=== PATIENT | male | born 1935 | race Caucasian/White ===

== ENCOUNTER → 2016-08-20 | Outpatient (CLI) | payer MEDICARE, BC ==
[~2016-08-20] MED LIST: ACET-2321 PO; AMLO10TA2 PO; APIX5TAB PO; DOCU100C PO; FAMO20TA8 PO; FURO-153 PO; GABA-336 PO; GABA-338 PO; HYDR12.54 PO; INDO50CA71 PO; LISI40TA4 PO; MELA10TA2 PO; MINO100C43 PO; POTA-81 PO; SIMV40TA5 PO; TRIA15CR3 TOP
--- NOTE | 2016-08-20 16:27 | DI ---
INDICATION: ITS.REASON: R05 COUGH PROCEDURE: CHEST 2-VIEWS UPRIGHT (PA \T\ LAT) Encounter: Initial COMPARISON: January 30, 2016 FINDINGS: Is a small area of strandy opacity in the left base which appears to be chronic probably representing scarring. The lungs are otherwise clear. There is no pleural effusion or pneumothorax. The heart size, mediastinal contours and pulmonary vascularity are unchanged with a left cardiac pacemaker. IMPRESSION: Stable chest without acute cardiopulmonary disease. .
== END ==
LOC: IMA 15:46
PROVIDERS: ATTEND Family Medicine
DX: R05 Cough (principal); Z95.0 Presence of cardiac pacemaker
CPT/HCPCS: 87486; 87581; 87633; 87798

== ENCOUNTER 2016-12-17 19:43 | Inpatient (IN) ==
--- NOTE | 2016-12-17 20:29 | Emergency Department Report ---
General Adult HPI - General Chief complaint: Weakness Stated complaint: Fever,weakness Time Seen by Provider: 12/17/16 20:04 Source: patient, family Mode of arrival: ambulatory Limitations: no limitations - History of Present Illness HPI narrative: 81-year-old male presents to the emergency department with a chief complaint of a fever. Patient denies any pain or discomfort. Patient was noted to have started experiencing a fever on Thursday. Temperature has been up to 102F at home. Patient does note that he pulled a tick from his posterior left neck a few days before his symptoms began. Patient has been noting improvement of symptoms with Tylenol. Patient was seen and evaluated with a negative evaluation including CTA of the chest and CT of the abdomen and pelvis at [facility] yesterday. Patient was at home when the symptoms began. Symptoms have been persisted in nature since onset. He has no other complaints or associated symptoms. - Related Data Home Medications Medication Instructions Recorded Confirmed Docusate Sodium [Stool Softener] 100 mg PO BID #0 cap 03/27/15 12/17/16 Famotidine 1 tab PO PRN #0 tab 03/27/15 12/17/16 Gabapentin 100 mg PO DAILY #0 cap 03/27/15 12/17/16 Simvastatin 40 mg PO HS #0 tab 03/27/15 12/17/16 Amlodipine Besylate 10 mg PO DAILY #0 tab 06/26/15 12/17/16 Triamcinolone 0.25% Cream 15G 1 applic TOP PRN #30 gm 06/26/15 12/17/16 [Kenalog] Allopurinol [Zyloprim] 100 mg PO DAILY 12/17/16 12/17/16 Donepezil [Aricept] 5 mg PO DAILY 12/17/16 12/17/16 Gabapentin [Neurontin] 200 mg PO HS 12/17/16 12/17/16 Multivitamin [One Daily 1 each PO DAILY 12/17/16 12/17/16 Multivitamin] Trazodone [Desyrel] 50 mg PO HS 12/17/16 12/17/16 Previous Rx's Medication Instructions Recorded Apixaban [Eliquis] 2.5 mg PO BID 30 Days 03/30/15 Allergies Allergy/AdvReac Type Severity Reaction Status Date / Time hydrochlorothiazide AdvReac Intermediate kidney Verified 12/17/16 20:09 damage lisinopril AdvReac Mild Cough Verified 12/17/16 20:07 furosemide [From Lasix] AdvReac kidney Verified 12/17/16 20:09 damage indomethacin AdvReac kidney Verified 12/17/16 20:09 damage metoprolol AdvReac Atrial Verified 12/17/16 20:08 Fibrillation rivaroxaban [From Xarelto] AdvReac Atrial Verified 12/17/16 20:08 Fibrillation Review of Systems Constitutional: Reports: fever. Denies: chills Eyes: Denies: eye pain, vision change ENT: Denies: ear pain, throat pain Cardiovascular: Denies: chest pain, palpitations Respiratory: Denies: cough, dyspnea Gastrointestinal: Denies: abdominal pain, nausea, vomiting, diarrhea Genitourinary: Denies: urgency, dysuria Musculoskeletal: Denies: back pain, arthralgia Integumentary: Denies: erythema, rash Neurological: Denies: headache, weakness, numbness, paresthesias Psychiatric: Denies: anxiety, depression Endocrine: Denies: fatigue, heat or cold intolerance Hematological/Lymphatic: Denies: easy bleeding, easy bruising Allergic/Immunologic: Denies: facial swelling, urticaria PFSH Patient Stated Medical History Cerebrovascular Accident Yes: only vision problems Dementia Yes Dysphagia Yes: speech therapy-improved Cardiac Arrhythmia Yes: afib Hx Renal Disease Yes Osteoarthritis Yes Surgical History: Pacemaker, Orthopedic surgery Family History: Reviewed and noncontributory. - Social History Smoking status: Never smoker Substance use type: does not use Alcohol intake frequency: does not drink Physical Exam - Limitations Limitations: no limitations - General General appearance: alert, in no apparent distress - Normal Exams: Head:: Normocephalic without trauma Eyes:: Pupils are PERRLA w/ EOMI, No scleral icterus, irritation, or foreign bodies noted ENMT:: No facial trauma, nasal exudates, pharyngeal erythema, or exudates are noted Dental: No fractured, loose, or missing teeth noted Neck:: Full range of motion, without adenopathy, JVD, bruits or thyromegaly Chest/Respirations:: Clear all renee, with good airflow, and symmetry bilaterally Cardiovascular:: Regular rate and rhythm, without murmur or gallop, Pulses 2+ all extremities, capillary refill, <2 seconds all extremities Abdomen:: Bowel sounds positive, soft, non-tender, non-distended, no hepatosplenomegaly, masses or bruits noted Lymphatic:: No lymphadenopathy, or lymphedema noted Integumentary:: No rashes, hives, or bruising noted, hair and nails, without abnormality (small scabbed area at the posterior left neck where tick was removed by patient. No sign of abscess. No lymphangitis.) Neurological:: Patient is alert, and oriented, cranial nerves, motor/sensory/ cerebellar, exams w/o gross deficits, to observation Psychiatric:: Patient exhibits, appropriate attention, emotion and affect Course Vital Signs Temperature 98.7 F 12/17/16 23:15 Pulse Rate 81 12/17/16 23:15 Respiratory Rate 19 12/17/16 23:15 Blood Pressure 137/58 12/17/16 23:15 Pulse Oximetry 94 12/17/16 23:15 Temperature 98.7 F 12/17/16 23:15 Pulse Rate 81 12/17/16 23:15 Respiratory Rate 19 12/17/16 23:15 Blood Pressure 137/58 12/17/16 23:15 Pulse Oximetry 94 12/17/16 23:15 Medical Decision Making - [facility] Narrative Medical decision making narrative: Labs/imaging were discussed in detail with the patient and family and questions are answered. Patient is given IV hydration. Patient is started on doxycycline 100 mg IV times one at 2208 when sepsis was considered. Patient was neither hypotensive nor did he have a lactic acid greater than 4 in the emergency Department. Patient is admitted to the service of the hospitalist for further evaluation and treatment. Patient and family are in agreement with the current plan of management. No further orders from accepting physician who is in agreement with the current plan of management. Patient is admitted to the service of Dr. Kelley after discussion with Dr. Sims. Patient is admitted to the hospital in improved condition. Patient will be treated for Lyme disease at this time. Records from [facility] visit were obtained and reviewed. - Differential Diagnosis Lyme disease, febrile illness, viral syndrome, UTI - Lab Data Lab Results 12/17/16 12/17/16 12/17/16 Range/Units 20:26 20:26 20:45 Troponin I 0.050 (0-0.12) ng/ml Plasma Lactate 1.2 (0.6-2.2) MMOL/L Procalcitonin 0.54 NG/ML Specimen Hemolysis < 15 (0-25) Ur Collection Type Urine, catheter Urine Color Yellow (YELLOW) Urine Clarity Clear Urine pH 5.0 (5.0-8.0) Ur Specific Moran 1.025 (1.015-1.025) Urine Protein 2+ A (NEGATIVE) Urine Glucose (UA) Negative (NEGATIVE) Urine Ketones Trace A (NEGATIVE) Urine Occult Blood 3+ A (NEGATIVE) Urine Nitrate Negative (NEGATIVE) Urine Bilirubin 1+ A (NEGATIVE) Urine Urobilinogen 4.0 A (NORMAL) EU/DL Ur Leukocyte Esterase Negative (NEGATIVE) Urine RBC 1-3 (0-3) /HPF Urine WBC 0-1 (0-5) /HPF Amorphous Sediment Moderate Urine Bacteria 1+ H (NEGATIVE) Hyaline Casts 0-1 /LPF Urine Mucus Present Ur Culture Indicated? Cult not indicated - Radiology Data Chest x-ray: Negative - EKG Data EKG #1 EKG results narrative: Atrial fibrillation. 82 bpm. No STEMI. Disposition Clinical Impression: Febrile illness, acute Disposition: 02 To [facility] Condition: Improved Time of Disposition: 22:00 - Seen By: physician
[2016-12-17] MEDS ORDERED: NS 1,000 ML IV ONE (22:04)
[2016-12-17] MEDS ORDERED: DOXYCYCLINE 100 MG in NS 250ml 250 ML IV ONE (22:08)
[2016-12-17] MEDS ORDERED: FAMOTIDINE 20 MG TABLET PO PRN (23:16)
[2016-12-17] MEDS ORDERED: ONDANSETRON 4 MG/2 ML INJECTION IVP PRN (23:16)
[2016-12-17] MEDS ORDERED: TRIAMCINOLONE 0.025% CREAM 15 G TUBE TOP SCH (23:16)
[2016-12-17 23:18] VITALS: BMI 32.0
[2016-12-17] MEDS ORDERED: FALL RISK - PHARMACY CONSULT MC PRN (23:32)
--- NOTE | 2016-12-17 23:47 | History & Physical Report ---
<Edwardo Sims Lee Ann - Last Filed: 12/17/16 23:43> History of Present Illness Date: 12/17/16 Chief complaint: Fevers HPI: Pleasant 81 year old male presents with fevers since Thursday. He apparently had a tick bite prior to this, behind his left ear. The tick was removed. He did not feel well yesterday, and went to the [facility] ED for treatment. He was reportedly told he should be admitted to the hospital, but it sounds like he left AMA from that ED. He went to his PCP today, and had blood drawn. He was told to come to the ER tonight by his PCP when lab returned some concerning findings. His TMAX today was reportedly 103.6 at home. In light of recent tick bite, doxycycline has been started and he will be placed into the hospital tonight for further treatment. Please note: This patient encounter was performed via telemedicine technology. Review of Systems All systems: reviewed and no additional remarkable complaints except as stated PFSH Patient Stated Medical History Cerebrovascular Accident Yes: , only vision problems Dementia Yes Cataracts Yes Dysphagia Yes: speech therapy-improved Cardiac Arrhythmia Yes: afib Hypertension Yes: Essential Other Cardiology Yes: Tricuspid valve regurgitation Gastroesophageal Reflux Yes Disease Hx Renal Disease Yes: CKD Osteoarthritis Yes - Social History Smoking status: Former smoker Medications Home Medications Medication Instructions Recorded Confirmed Type Docusate Sodium [Stool Softener] 100 mg PO BID #0 cap 03/27/15 12/17/16 History Famotidine 1 tab PO PRN #0 tab 03/27/15 12/17/16 History Gabapentin 100 mg PO DAILY #0 cap 03/27/15 12/17/16 History Simvastatin 40 mg PO HS #0 tab 03/27/15 12/17/16 History Amlodipine Besylate 10 mg PO DAILY #0 tab 06/26/15 12/17/16 History Triamcinolone 0.25% Cream 15G 1 applic TOP PRN #30 gm 06/26/15 12/17/16 History [Kenalog] Allopurinol [Zyloprim] 100 mg PO DAILY 12/17/16 12/17/16 History Donepezil [Aricept] 5 mg PO DAILY 12/17/16 12/17/16 History Gabapentin [Neurontin] 200 mg PO HS 12/17/16 12/17/16 History Multivitamin [One Daily 1 each PO DAILY 12/17/16 12/17/16 History Multivitamin] Trazodone [Desyrel] 50 mg PO HS 12/17/16 12/17/16 History Allergies Allergy/AdvReac Type Severity Reaction Status Date / Time hydrochlorothiazide AdvReac Intermediate kidney Verified 12/17/16 20:09 damage lisinopril AdvReac Mild Cough Verified 12/17/16 20:07 furosemide [From Lasix] AdvReac kidney Verified 12/17/16 20:09 damage indomethacin AdvReac kidney Verified 12/17/16 20:09 damage metoprolol AdvReac Atrial Verified 12/17/16 20:08 Fibrillation rivaroxaban [From Xarelto] AdvReac Atrial Verified 12/17/16 20:08 Fibrillation Exam Vital Signs: Temperature 98.7 F 12/17/16 23:15 Pulse Rate 81 12/17/16 23:15 Respiratory Rate 19 12/17/16 23:15 Blood Pressure 137/58 12/17/16 23:15 Pulse Oximetry 94 12/17/16 23:15 Oxygen Delivery Method Room Air Height: 1.78 m Weight: 101.2 kg Body Mass Index: 32.0 - Constitutional Present: no acute distress - Routine HEENT Exam Head: Present: normocephalic, atraumatic Eye: Present: EOMI - Routine Neck Exam Present: supple. Absent: JVD - Routine Respiratory Exam Present: CTA bilaterally - Routine Cardiovascular Exam Present: RRR, S1, S2 - Routine Abdominal Exam Present: soft - Routine Extremities Exam Absent: edema - Routine Skin Exam Absent: rash - Routine Neurological Exam No deficits Assessment and Plan DVT Prophylaxis: SCD's Resuscitation Status: Full Code Assessment and Plan: 1. Fever with concern for early sepsis, possibly in relation to recent tick bite 2. Cerebrovascular disease 3. Dementia 4. A fib 5. HTN 6. GERD 7. OA Plan Patient will be admitted to the hospital. Continue IVF. Another dose of IV doxycycline will be ordered for the AM. Tick borne panel sent, including lyme, RMSF, erhlichia. Supportive care. He does not appear toxic at this time. Repeat labs in AM. I have reviewed his home meds, will continue those which would be appropriate at this time. DVT ppx will be with home DOAC. Hospital Course Summary Disclaimer: The visit summary below is not to be considered part of the above Progress Note. <Gabriela Encarnacion - Last Filed: 12/18/16 10:31> History of Present Illness Date: 12/18/16 [facility] Patient Stated Medical History Cerebrovascular Accident Yes: , only vision problems Dementia Yes Cataracts Yes Dysphagia Yes: speech therapy-improved Cardiac Arrhythmia Yes: afib Hypertension Yes: Essential Other Cardiology Yes: Tricuspid valve regurgitation Gastroesophageal Reflux Yes Disease Hx Renal Disease Yes: CKD Osteoarthritis Yes Exam Vital Signs: Temperature 99.0 F 12/18/16 07:15 Pulse Rate 77 12/18/16 08:00 Respiratory Rate 19 12/17/16 23:15 Blood Pressure 113/56 12/18/16 07:15 Pulse Oximetry 91 12/18/16 07:15 Oxygen Delivery Method Room Air Height: 5 ft 10 in Weight: 225 lb 8.526 oz Results - Labs CBC & Chem 7: 12/18/16 04:30 12/18/16 04:30 Assessment and Plan Assessment and Plan: Patient was seen and examined by me at 9:50 am and dictated separately. Hospital Course Summary Disclaimer: The visit summary below is not to be considered part of the above Progress Note.
[2016-12-18] MEDS: SIMVASTATIN 40 MG TABLET PO SCH ×2 (00:05→21:07)
[2016-12-18] MEDS: GABAPENTIN 100 MG CAPSULE PO SCH ×3 (00:06→21:07)
[2016-12-18] MEDS: TRAZODONE 50 MG TABLET PO SCH ×2 (00:06→21:06)
[2016-12-18] MEDS: DOCUSATE SODIUM 100 MG CAPSULE PO SCH ×3 (00:09→21:07)
[2016-12-18] MEDS: APIXABAN 5 MG TABLET PO SCH ×3 (01:13→21:07)
[2016-12-18] MEDS: NS 1,000 ML IV SCH ×3 (01:15→14:52)
--- NOTE | 2016-12-18 08:00 | XRay Report ---
Indication: Fever PROCEDURE: XR chest 1V: Encounter: Initial Comparison: August 20, 2016 Findings: Lungs are mildly hypoinflated. There is pulmonary vascular congestion and probable small left effusion. Right lung is grossly clear. No pneumothorax. Heart size and mediastinal contours are stable. Left pacemaker. Impression: Mild to moderate congestive failure. .
[2016-12-18] MEDS: ALLOPURINOL 100 MG TABLET PO SCH (09:09)
[2016-12-18] MEDS: DONEPEZIL 5 MG TABLET PO SCH (09:09)
[2016-12-18] MEDS: AMLODIPINE 10 MG TABLET PO SCH (09:09)
[2016-12-18] MEDS ORDERED: DOXYCYCLINE 100 MG in NS 250ml 250 ML IV ONE (10:00)
[2016-12-18] MEDS: ACETAMINOPHEN 325 MG TABLET PO PRN ×4 (12:58→23:55)
[2016-12-18] MEDS: MULTI-VITAMIN PLAIN TABLET PO SCH (15:02)
--- NOTE | 2016-12-18 15:32 | History and Physical ---
INFORMANT: Patient, who is a fair, somewhat poor, historian, patient's granddaughter, who lives at home with him, and patient's current chart. Time of exam: 9:50 a.m. CHIEF COMPLAINT Fevers. PRIMARY CARE PHYSICIAN Dr. Holder HISTORY OF PRESENT ILLNESS The patient is a very pleasant 81-year-old white male who was brought to the emergency department in [place] on Thursday with a fever and he was feeling weak. At the time he presented there he reported that he had had chest pain the night before which was a tight feeling radiating from both elbows up on both sides with some left-sided jaw pain. This subsequently resolved. He also was running fevers. He did report that he had a bite behind his left ear that he believes was a tick, that he removed about a week to a week and a half ago. When he was seen in the [place] emergency department he was advised to be admitted but he did not want to be admitted so he left the ED and saw Dr. Hargrove in the clinic yesterday afternoon at which time he had a second EKG. The first EKG was apparently normal according to the granddaughter as was the second. Blood work was drawn and Dr. Hargrove called yesterday afternoon saying that the lab work was okay. However, the patient was continuing to run fevers. The granddaughter reports that on Thursday his temperature went down with Tylenol from 101.6 but then was back up to 103.8 last evening. The granddaughter brought him to the [facility] Department for further evaluation and he was subsequently admitted. The patient reports that he has had fevers as high as 103.8 with shaking chills and night sweats. He has had a little bit of headache in the center of his head. He has had no sores in his mouth and no sore throat. He does have upper dentures and lower partials. His vision is corrected with glasses. He is hard of hearing which makes the exam somewhat difficult. The granddaughter reports he has sounded somewhat short of breath but he denies. He has an occasional cough or clearing of the throat. He has had no nausea, no vomiting, no diarrhea, no constipation. He has felt weak all over. Yesterday he was unable to sit up in his bed unassisted. No particular pain. No numbness. No tingling of his arms or legs. No obvious skin rash. The granddaughter does report they live outside of town in [place] and her grandfather spends a lot of time with the dog outside by a shade tree. There have been lots of ticks primarily on the dog. She does not recall a tick on her grandfather. The patient was started on doxycycline and was admitted for further evaluation. PAST MEDICAL HISTORY Prostate cancer - 1999. Stroke - October 2013. Skin cancer melanoma removed from right side of face - 2013. History of atrial fibrillation for which he sees Dr. Wellington. Neuropathy. High cholesterol. Essential hypertension. Chronic kidney disease. Hyperlipidemia. Gout. Gastroesophageal reflux disease. Tricuspid valve regurgitation. PAST SURGICAL HISTORY Prostatectomy - 1999. Right knee replacement - 2006. Melanoma removed - 2013. Pacemaker placement - 06/26/2015. HOME MEDICATIONS Colace 100 mg p.o. b.i.d. Famotidine 20 mg p.o. p.r.n. Simvastatin 40 mg p.o. daily. Amlodipine 10 mg p.o. daily. Eliquis 2.5 mg twice daily. Allopurinol 100 mg p.o. daily. Donepezil 5 mg p.o. daily. Trazodone 50 mg p.o. daily for insomnia. Centrum Silver daily. Triamcinolone acetonide 0.1% p.r.n. dry skin. Gabapentin 100 mg in the morning, 200 mg in evening for neuropathy. ALLERGIES Namzaric. Lisinopril - caused a cough. Hydrochlorothiazide - stopped due to worsening kidney function. Lasix and potassium chloride also worsened his kidney function but he can take once daily for three days as needed. Xarelto and metoprolol caused atrial fibrillation. Indomethacin worsened his kidney function. PERSONAL HISTORY The patient lives at home with his granddaughter who is his primary squeezer operator. He is originally from a small town in [place]. 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 His hobbies include yard work including mowing. They have two dogs and one bird. He quit smoking 40 years ago. He continues to chew tobacco. He drinks alcohol occasionally. No IV or street drug use. FAMILY HISTORY Father in his 80s of [place]. Mother at age 89 presumably from old age. He has one sister who from cancer, one brother who for COPD. IMMUNIZATIONS It is unclear if he has had a Tdap or a shingles vaccine. His flu vaccine was in January 2016. Prevnar 13 in March 2015. Prevnar 23 in January 2016. REVIEW OF SYSTEMS As per HPI above. In addition, his vision is corrected with glasses. He has dentures, as noted above. He has had a colonoscopy in the past but nothing recent. Otherwise, negative review of systems except as mentioned in HPI. PHYSICAL EXAM VITAL SIGNS: Temperature on admission 98.7. This morning it is 99.0 oral. Pulse 93/irregular. Blood pressure 113/56. Oxygen saturation on room air 91%. WT 223 pounds. GENERAL: This is an alert white male who is cooperative with exam. HEENT: Head is atraumatic, normocephalic. PERRLA. There is no conjunctival petechiae. Oral mucosa is somewhat dry. He has upper plates and lower partials. No evidence of thrush. NECK: Supple without adenopathy. LUNGS: Coarse breath sounds with a few crackles in the right base. CARDIOVASCULAR: Irregularly irregular. No obvious murmur. It should be noted that he has an implanted pacemaker in the left upper chest. ABDOMEN: Distended. Bowel sounds are present. There is no guarding, no rebound. No hepatosplenomegaly. EXTREMITIES: No clubbing or cyanosis. He has trace edema. There is no obvious rash. He has a small bruise on the left foot that is about 3 cm in diameter and extending on the upper part of his left foot. He has a little ecchymosis on the left second toe on the pad of the toe. He also has some damage to the left thumbnail secondary to previous trauma. LABORATORY Blood cultures x 2 have been drawn and are pending. White cell count is 4700 with 73% neutrophils, 23% bands. Hemoglobin 12.8, hematocrit 39.0, platelet count 87,000. Sodium 136, potassium 3.8, chloride 108, BUN 26, creatinine 1.8, CO2 22, glucose 103, calcium 8.3, AST 101, ALT 70. Troponin 0.050. Total protein 5.9. Albumin 3.3. Plasma lactate 1.2. Procalcitonin 0.54. UA showed 2+ protein, 3+ blood, 1+ bilirubin, 1+ bacteria. Serologies for Lyme are pending, which will be unlikely. Tularemia antibody is pending as well as rickettsia, Ehrlichia muris, Ehrlichia ewingii, Ehrlichia chaffeensis, Anaplasma phagocytophilum and IgM. IMAGING Chest x-ray done on admission compared to 08/03/2016 showed lungs are mildly hypoinflated. There is pulmonary vascular congestion, probable small left effusion. Right lung is grossly clear. No pneumothorax. Heart size and mediastinal contours are stable. Left pacemaker in place. Impression: Mild-to- moderate congestive heart failure. IMPRESSION 1. Fevers and recent tick bites. Ehrlichia tickborne illness such as Rickettsia , tularemia, ehrlichiosis or anaplasma would be in the differential. With the new finding of the right lower lung crackles would rule out pneumonia. 2. Atrial fibrillation, currently stable on current medications. 3. Chronic kidney disease. 4. Essential hypertension. 5. Hyperlipidemia. 6. Gout. 7. Gastroesophageal reflux disease. RECOMMENDATIONS 1. At this time will continue doxycycline. Will switch to p.o. as it has good absorption. 2. Will repeat chest x-ray. 3. Will discontinue IV fluids. 4. Discussed code status with the patient and his granddaughter. At this time the patient is a FULL CODE. 5. At some point the patient needs to have his immunizations addressed as an outpatient in clinic including shingles vaccine and Tdap. MTDD
--- NOTE | 2016-12-18 18:21 | Progress Note ---
Progress Note: Called by nursing around 12:45. She reported pt was doing well this am, however when transferred to chair, family noted facial twitching, weakness and trembling. His O2 sats were in the low 90's on room air and he was lethargic. Other vital signs were WNL except his temperature was increasing (see flow sheet ). He was given tylenol, started on 1 liter O2 and placed back in bed with additional blankets. When I checked later, he was resting quietly but his fevers have returned. I suspect the earlier episode was shaking chills in response to his fever. He may require IV fluids and needs close monitoring for change in status. Discussed with family and nursing.
[2016-12-18] MEDS ORDERED: CEFTRIAXONE 1 G in NS 100 ML IV SCH (21:00)
[2016-12-18] MEDS: SALINE FLUSH 10ml SYRINGE IVF PRN ×2 (21:53→23:57)
[2016-12-19] MEDS: NS 1,000 ML IV SCH ×2 (02:54→11:00)
[2016-12-19] MEDS: SALINE FLUSH 10ml SYRINGE IVF PRN ×2 (02:55→20:32)
--- NOTE | 2016-12-19 08:46 | XRay Report ---
INDICATION: crackles right lower lobe PROCEDURE: CHEST 2-VIEWS UPRIGHT (PA & LAT) Encounter: Initial COMPARISON: December 17, 2016 FINDINGS: Pulmonary vascular congestion has improved. There are some fine groundglass opacities remaining in the lung bases, but no new consolidation. Upper lung renee are clear. No pneumothorax. Trace effusions. Heart size and mediastinal contours are stable. Left pacemaker. Impression: Improved congestive failure. No focal pneumonia. .
[2016-12-19] MEDS: ALLOPURINOL 100 MG TABLET PO SCH (09:51)
[2016-12-19] MEDS: MULTI-VITAMIN PLAIN TABLET PO SCH (09:51)
[2016-12-19] MEDS: DOCUSATE SODIUM 100 MG CAPSULE PO SCH ×2 (09:51→20:32)
[2016-12-19] MEDS: DONEPEZIL 5 MG TABLET PO SCH (09:51)
[2016-12-19] MEDS: APIXABAN 5 MG TABLET PO SCH ×2 (09:51→20:31)
[2016-12-19] MEDS: GABAPENTIN 100 MG CAPSULE PO SCH ×3 (09:52→22:12)
[2016-12-19] MEDS: ACETAMINOPHEN 325 MG TABLET PO PRN (11:12)
--- NOTE | 2016-12-19 12:29 | Progress Note ---
Subjective: The patient was seen at 10:55 with grandson at bedside. The patient reports he is doing well and slept well during the night. Denies fevers, chills, sweats. Denies sore throat, shortness of breath, dyspnea on exertion. His son reports he does have a chronic cough without sputum production ,. He did have chest pain prior to admission.The family is requesting that Dr. Wellington see him while he is here. He denies nausea, vomiting, diarrhea. He does report constipation. He is urinating without difficulty, denies dysuria. Objective Vital signs: Temperature 98.0 F 12/19/16 12:00 Pulse Rate 96 12/19/16 12:00 Respiratory Rate 18 12/19/16 12:00 Blood Pressure 99/55 12/19/16 12:00 Pulse Oximetry 92 12/19/16 12:00 Oxygen Delivery Method Room Air Oxygen Flow Rate 1 Selected Entries 12/18/16 13:03 12/18/16 13:15 12/18/16 14:22 Temperature 99.1 F 100.1 F 101.7 F H 12/18/16 16:00 12/18/16 18:10 12/18/16 20:00 Temperature 101.9 F H 102.2 F H 100.5 F H 12/18/16 22:00 12/19/16 00:00 12/19/16 02:15 Temperature 100 F 101.5 F H 101.4 F H 12/19/16 04:00 12/19/16 05:57 12/19/16 07:40 Temperature 98.7 F 98.5 F 97.3 F 12/19/16 09:56 Temperature 97.5 F Weight: 230 lb 9.656 oz - Additional findings Additional findings: In general, the patient is alert and oriented 3 cooperative with exam and in no respiratory distress HEENT head is atraumatic,normocephalic, no conjunctival petechiae, no oral thrush, mucous membranes are moist and pink Lungs are clear to auscultation without wheezes or crackles Back there is slight erythema suspect secondary to positioning, no obvious rash CV irregular rate and rhythm without murmur Abdomen is soft, bowel sounds are present,there is no guarding or rebound Extremities no clubbing, no cyanosis, no edema, no sign of rash Neuro patient is alert IV access hep lock in right arm without phlebitis Results - Labs CBC & Chem 7: 12/19/16 05:07 12/19/16 13:26 Labs: Microbiology 12/17/16 20:29 Peripheral/Iv Start Blood Culture - Preliminary No Growth After 1 Day 12/17/16 20:26 Peripheral/Iv Start Blood Culture - Preliminary No Growth After 1 Day Laboratory Tests 12/17/16 12/17/16 12/18/16 20:26 20:45 04:30 Neutrophils % (Manual) Band Neutrophils % Lymphocytes % (Manual) Creatinine 1.8 H Urine Protein 2+ A Urine Occult Blood 3+ A Urine Bilirubin 1+ A Urine Bacteria 1+ H Lyme Total Antibody Negative 12/18/16 12/19/16 12/19/16 14:19 05:07 05:07 Neutrophils % (Manual) 49.0 Band Neutrophils % 39.0 H D Lymphocytes % (Manual) 10.0 L Creatinine 2.5 H D Urine Protein 1+ A Urine Occult Blood 3+ A Urine Bilirubin 1+ A Urine Bacteria Lyme Total Antibody Laboratory Tests 12/19/16 05:07 Neutrophils % (Manual) 49.0 Band Neutrophils % 39.0 H D Lymphocytes % (Manual) 10.0 L Monocytes % (Manual) 2.0 - Imaging and Cardiology Chest x-ray Status: image reviewed by me Additional comments: FINDINGS: Pulmonary vascular congestion has improved. There are some fine groundglass opacities remaining in the lung bases, but no new consolidation. Upper lung renee are clear. No pneumothorax. Trace effusions. Heart size and mediastinal contours are stable. Left pacemaker. Impression: Improved congestive failure. No focal pneumonia. Assessment and Plan Assessment and Plan: Assessment: Fever most likely due to a tickborne illness. Chronic kidney disease now with a rapid increase in creatinine most likely secondary to dehydration and possible interstitial nephritis due to infection A fib currently stable on medication chronic HTN the patient has been hypotensive during the evening fluid was increased, Norvasc is on hold GERD OA chronic Plan: Continue oral doxycycline We will continue IV fluids which were started last night response to his low blood pressure and increased creatinine. His increased creatinine may be secondary to the underlying infection as that may also explain his hematuria which may represent interstitial nephritis. It should be noted the patient has CT scan done in and December 16, at that time the kidneys showed normal enhancement without masses no radiodense stones or hydronephrosis. Continue OT and PT secondary to weakness, patient's family wonders if he might need physical therapy as an outpatient as well. We will DC ceftriaxone Will ask Dr. VERNON need to see the patient at the family's request Will recheck a BMP this afternoon to monitor his creatinine Sepsis Assessment - Evaluation Sepsis screening result: No Definite Risk Hospital Course Summary Disclaimer: The visit summary below is not to be considered part of the above Progress Note. Hospital Course: 12/19/16 14:21 Assessment: Fever most likely due to a tickborne illness. Chronic kidney disease now with a rapid increase in creatinine most likely secondary to dehydration and possible interstitial nephritis due to infection A fib currently stable on medication chronic HTN the patient has been hypotensive during the evening fluid was increased, Norvasc is on hold GERD OA chronic Plan: Continue oral doxycycline We will continue IV fluids which were started last night response to his low blood pressure and increased creatinine. His increased creatinine may be secondary to the underlying infection as that may also explain his hematuria which may represent interstitial nephritis. It should be noted the patient has CT scan done in [place] and December 16, at that time the kidneys showed normal enhancement without masses no radiodense stones or hydronephrosis. Continue OT and PT secondary to weakness, patient's family wonders if he might need physical therapy as an outpatient as well. We will DC ceftriaxone Will ask Dr. VERNON need to see the patient at the family's request Will recheck a BMP this afternoon to monitor his creatinine
--- NOTE | 2016-12-19 13:06 | Cardiology Consult Note ---
History of Present Illness Consult date: 12/19/16 <Evelyn Handy L - 12/19/16 13:17> Requesting physician: Gabriela Encarnacion <Evelyn Handy - 12/19/16 13:17> Consult reason: atrial fibrillation <Evelyn Handy - 12/19/16 13:17> Chief complaint: atrial fib, fatigue, chest pain <Evelyn Handy - 12/19/16 13:17> History of present illness: Pt had chest pressure radiating to both arms on thursday of this week, it was associated with general malaise, fatigue, SOA and fever. He was seen Thursday in the ED with a reported normal ECG and sent home. He was seen by his PCP on Thursday of this week with findings of fever of unknown origin but denied chest pain at that time. He was instructed by his PCP to make a follow up outpatient appointment with Dr. Wellington to further eval/work up his chest pain. He also had an elevated BNP per reports of >4000. Mr. Emerson is well known to Dr. Wellington's service, he is followed for CAD, chronic AFib, PPM, HTN, HLD and PAD. He has known chronic kidney failure. He was admitted here to [facility] for persistent fevers and malaise 12/18/16 under the care of Dr. Encarnacion, she reports a suspected tick borne illness as etiology for his febrile illness. Per chart review from our office the patient was last seen 09/2016 with an Echo, EF 55-60%, Grade 3 diastolic dysfunction, Pulm HTN, moderate TR. He had a non- ischemic MPI 07/2015. His afib is persistent, last PPM check AFib burden 100%, battery life 8.5 years. <Evelyn Handy - 12/19/16 13:26> Review of Systems - Constitutional Constitutional: Present: anorexia, fever(s), weakness <Evelyn Handy - 13:17> - EENMT Eyes: Absent: change in vision <Evelyn Handy - 12/19/16 13:17> Mouth/Throat: Present: dry mouth <Evelyn Handy - 12/19/16 13:17> - Cardiovascular Cardiovascular: Present: chest pain, edema. Absent: palpitations, heart murmur <Evelyn Handy - 12/19/16 13:17> Vascular: Present: pedal edema <Evelyn Handy 12/19/16 13:17> - Respiratory Respiratory: Present: dyspnea <Evelyn Handy - 12/19/16 13:17> - Gastrointestinal Gastrointestinal: Absent: abdominal pain <Evelyn Handy 12/19/16 13:17> - Musculoskeletal Musculoskeletal: Present: abnormal gait <Evelyn Handy 12/19/16 13:17> - Integumentary/Breasts Integumentary: Absent: erythema, rash <Evelyn Handy 12/19/16 13:17> - Neurological Neurological: Absent: focal weakness <Evelyn Handy 12/19/16 13:17> - Psychiatric Psychiatric: Absent: depression <Evelyn Handy 12/19/16 13:17> - Endocrine Endocrine: Absent: palpitations <Evelyn Handy 12/19/16 13:17> PFSH PPM, AFib, HTN, HLD, CKD <RossiEvelyn 12/19/16 13:17> Surgical History: Pacemaker, Orthopedic surgery <Evelyn Handy 12/19/16 13:17> Family History: CAD <Evelyn Handy 12/19/16 13:17> - Social History Current residence: Apartment/Private Home <Evelyn Handy 12/19/16 13:17> Medications Home Medications Medication Instructions Recorded Confirmed Type Docusate Sodium [Stool Softener] 100 mg PO BID #0 cap 03/27/15 12/17/16 History Famotidine 1 tab PO PRN #0 tab 03/27/15 12/17/16 History Gabapentin 100 mg PO DAILY #0 cap 03/27/15 12/17/16 History Simvastatin 40 mg PO HS #0 tab 03/27/15 12/17/16 History Amlodipine Besylate 10 mg PO DAILY #0 tab 06/26/15 12/17/16 History Triamcinolone 0.25% Cream 15G 1 applic TOP PRN #30 gm 06/26/15 12/17/16 History [Kenalog] Allopurinol [Zyloprim] 100 mg PO DAILY 12/17/16 12/17/16 History Donepezil [Aricept] 5 mg PO DAILY 12/17/16 12/17/16 History Gabapentin [Neurontin] 200 mg PO HS 12/17/16 12/17/16 History Multivitamin [One Daily 1 each PO DAILY 12/17/16 12/17/16 History Multivitamin] Trazodone [Desyrel] 50 mg PO HS 12/17/16 12/17/16 History <Ponce Wellington - 12/23/16 09:37> Allergies Allergy/AdvReac Type Severity Reaction Status Date / Time hydrochlorothiazide AdvReac Intermediate kidney Verified 12/17/16 20:09 damage lisinopril AdvReac Mild Cough Verified 12/17/16 20:07 furosemide [From Lasix] AdvReac kidney Verified 12/17/16 20:09 damage indomethacin AdvReac kidney Verified 12/17/16 20:09 damage metoprolol AdvReac Atrial Verified 12/17/16 20:08 Fibrillation rivaroxaban [From Xarelto] AdvReac Atrial Verified 12/17/16 20:08 Fibrillation <Ponce Wellington - 12/23/16 09:37> Exam Vital signs: Temperature 96.4 F L 12/23/16 07:14 Pulse Rate 83 12/23/16 07:14 Respiratory Rate 18 12/23/16 07:14 Blood Pressure 133/62 12/23/16 07:14 Pulse Oximetry 92 12/23/16 07:14 Oxygen Delivery Method Room Air Oxygen Flow Rate 1 <Ponce Wellington - 12/23/16 09:37> Temperature 98.0 F 12/19/16 12:00 Pulse Rate 96 12/19/16 12:00 Respiratory Rate 18 12/19/16 12:00 Blood Pressure 99/55 12/19/16 12:00 Pulse Oximetry 92 12/19/16 12:00 Oxygen Delivery Method Room Air Oxygen Flow Rate 1 <Evelyn Handy - 12/19/16 13:17> - Constitutional no acute distress <Evelyn Handy - 12/19/16 13:17> - Routine HEENT Exam Head: Present: normocephalic, atraumatic <Evelyn Handy L - 12/19/16 13:17> Eye: Present: PERRL, conjunctivae pink <Destiney Handyca L - 12/19/16 13:17> ENT: Present: mucous membranes moist <Destiney Handyca L - 12/19/16 13:17> - Routine Neck Exam Absent: JVD, carotid bruit <Destiney Handyca L - 12/19/16 13:17> - Routine Respiratory Exam Present: decreased breath sounds <Destiney Handyca L - 12/19/16 13:17> - Routine Cardiovascular Exam Present: irregular rhythm. Absent: JVD <Destiney Handyca L - 12/19/16 13:17> - Routine Abdominal Exam Present: soft, normoactive bowel sounds <Destiney Handyca L - 12/19/16 13:17> - Routine Extremities Exam Present: edema (+1) <Destiney Handyca L - 12/19/16 13:17> - Routine Skin Exam Present: intact <Destiney Handyca L - 12/19/16 13:17> - Routine Neurological Exam Present: alert, oriented X3 <Evelyn Handy L - 12/19/16 13:17> - Routine Psychiatric Exam Present: normal affect <Evelyn Handy L - 12/19/16 13:17> Results 12/23/16 04:46 12/23/16 04:46 <Ponce Wellington - 12/23/16 09:37> Cardiac Enzymes 12/23/16 Range/Units 04:46 AST 256 H (17-59) U/L CBC 12/23/16 Range/Units 04:46 WBC 6.8 (4.5-11.0) T/MM3 RBC 3.87 L (4.50-5.90) M/MM3 Hgb 11.4 L (13.5-17.5) GM/DL Hct 34.8 L (41-53) % Plt Count 85 L (130-400) T/MM3 Comprehensive Metabolic Panel 12/23/16 Range/Units 04:46 Sodium 141 (134-144) MEQ/L Potassium 4.3 (3.6-5) MEQ/L Chloride 111 H (98-107) MEQ/L Carbon Dioxide 22 (22-30) MEQ/L BUN 47.0 H (9-20) MG/DL Creatinine 3.2 H (0.8-1.5) MG/DL Glucose 85 (75-110) MG/DL Calcium 8.1 L (8.4-10.2) MG/DL Unconjugated Bilirubin 0.30 (0.00-11.10) MG/DL AST 256 H (17-59) U/L ALT 149 H (21-72) U/L Alkaline Phosphatase 198 H (38-126) U/L Total Protein 5.6 L (6.3-8.2) G/DL Albumin 3.1 L (3.5-5.0) G/DL Intake and Output 12/22/16 12/23/16 12/23/16 22:59 06:59 14:59 Intake Total 677.5 / 677.5 100 / 100 190 / 190 Output Total 550 / 550 375 / 375 Balance 127.5 / 127.5 -275 / -275 190 / 190 Intake: IV 177.5 / 177.5 Sodium Acetate 100 Meq In 177.5 / 177.5 Dextrose 5% in Water 1, 000 ml @ 75 mls/hr IV . Q14H [facility] Rx#:[id number] Oral 500 / 500 100 / 100 190 / 190 Output: Urine Amount (Catheter) 550 / 550 375 / 375 Other: Weight 108 kg 108.8 kg Patient Weight 12/24/16 06:59 Weight 108.8 kg <Ponce Wellington - 12/23/16 09:37> Cardiac Enzymes 12/19/16 Range/Units 05:07 AST 138 H (17-59) U/L CBC 12/19/16 Range/Units 05:07 WBC 4.0 L (4.5-11.0) T/MM3 RBC 4.10 L (4.50-5.90) M/MM3 Hgb 12.2 L (13.5-17.5) GM/DL Hct 37.5 L (41-53) % Plt Count 62 L (130-400) T/MM3 Comprehensive Metabolic Panel 12/19/16 Range/Units 05:07 Sodium 137 (134-144) MEQ/L Potassium 4.0 (3.6-5) MEQ/L Chloride 109 H (98-107) MEQ/L Carbon Dioxide 22 (22-30) MEQ/L BUN 32.0 H (9-20) MG/DL Creatinine 2.5 H D (0.8-1.5) MG/DL Glucose 96 (75-110) MG/DL Calcium 7.6 L D (8.4-10.2) MG/DL Unconjugated Bilirubin 0.30 (0.00-11.10) MG/DL AST 138 H (17-59) U/L ALT 92 H (21-72) U/L Alkaline Phosphatase 124 D (38-126) U/L Total Protein 5.6 L (6.3-8.2) G/DL Albumin 2.9 L (3.5-5.0) G/DL Intake and Output 12/18/16 12/19/16 12/19/16 22:59 06:59 14:59 Intake Total 100 / 900 1000 / 1000 Output Total 225 / 225 Balance 100 / 900 -225 / -225 1000 / 1000 Intake: IV 100 / 100 1000 / 1000 Rocephin 1 G In Normal 100 / 100 Saline 100 ml @ 200 mls/ hr IV Q24H [facility] Rx#: [id number] Normal Saline 1,000 ml @ 1000 / 1000 125 mls/hr IV .Q8H [facility] Rx #:[id number] Output: Urine 225 / 225 Other: # Voids 1 1 # Bowel Movements 1 1 Weight 104.6 kg Patient Weight 12/20/16 06:59 Weight 104.6 kg <Evelyn Handy L - 12/19/16 13:17> Assessment and Plan (1) Atrial fibrillation Current visit: Yes Status: Chronic (2) Pacemaker Current visit: Yes Status: Chronic (3) HTN (hypertension) Current visit: Yes Status: Chronic <Ponce Wellington - 12/23/16 09:37> (1) Pacemaker Current visit: Yes Status: Chronic (2) Atrial fibrillation Current visit: Yes Status: Chronic Continue home anticoagulation with Eliques 2.5mg bid. Monitor tele, rate control tolerable given pt's hypotension. Will check a BNP. (3) HTN (hypertension) Current visit: Yes Status: Chronic Hold norvasc 2/2 hypotension. <Evelyn Handy - 12/19/16 13:52> - Attestation Attestation Narrative: 12/23/16 09:37 Recommendation After examining the patient I agree with the above assessment. I am involved in the formulation of the patient's plan of care. <Ponce Wellington - 12/23/16 09:37> Hospital Course Summary Disclaimer: The visit summary below is not to be considered part of the above Progress Note. <Ponce Wellington - 12/23/16 09:37> The visit summary below is not to be considered part of the above Progress Note. <Evelyn Handy - 12/19/16 13:17> Sepsis Assessment - Evaluation Sepsis screening result: No Definite Risk <Evelyn Handy - 12/19/16 13:17>
[2016-12-19] MEDS: TRAZODONE 50 MG TABLET PO SCH ×2 (20:31→22:12)
[2016-12-19] MEDS: SIMVASTATIN 40 MG TABLET PO SCH ×2 (20:32→22:13)
[2016-12-19] MEDS ORDERED: FALL RISK - PHARMACY CONSULT XX ONE (20:42)
[2016-12-20] MEDS: DOCUSATE SODIUM 100 MG CAPSULE PO SCH ×2 (09:19→22:07)
[2016-12-20] MEDS: ALLOPURINOL 100 MG TABLET PO SCH (09:19)
[2016-12-20] MEDS: MULTI-VITAMIN PLAIN TABLET PO SCH (09:19)
[2016-12-20] MEDS: AMLODIPINE 10 MG TABLET PO SCH (09:19)
[2016-12-20] MEDS: SALINE FLUSH 10ml SYRINGE IVF PRN (09:20)
[2016-12-20] MEDS: GABAPENTIN 100 MG CAPSULE PO SCH ×2 (09:20→22:09)
[2016-12-20] MEDS: DONEPEZIL 5 MG TABLET PO SCH (09:20)
[2016-12-20] MEDS: APIXABAN 5 MG TABLET PO SCH ×2 (09:20→22:08)
--- NOTE | 2016-12-20 10:40 | Progress Note ---
<Ellen Robertson - Last Filed: 12/20/16 10:37> Subjective: [place] is seen today in follow up. He is up in chair. Alert, quiet- does not visit much- answers questions with yes/no. Grand-daughter is at bedside. Chart is reviewed at length for collateral information. Objective Vital signs: Temperature 97.6 F 12/20/16 07:26 Pulse Rate 87 12/20/16 07:26 Respiratory Rate 22 12/20/16 07:26 Blood Pressure 116/62 12/20/16 08:20 Pulse Oximetry 93 12/20/16 07:26 Oxygen Delivery Method Room Air Oxygen Flow Rate 1 Weight: 232 lb - Constitutional Present: no acute distress, well nourished, obese, cooperative - Routine HEENT Exam Head: Present: normocephalic, atraumatic Eye: Present: EOMI, PERRL ENT: Present: mucous membranes dry - Routine Respiratory Exam Present: decreased breath sounds, CTA bilaterally, distant breath sounds. Absent: dyspnea, rales, rhonchi, wheezes, crackles - Routine Cardiovascular Exam Present: RRR, S1, S2, no murmur. Absent: gallop, rubs - Routine Abdominal Exam Present: soft, normoactive bowel sounds, non distended, non tender - Routine Extremities Exam Present: no edema, non tender. Absent: calf tenderness, tenderness Comments: SCDs in place. No significant edema. - Routine Musculoskeletal Exam Musculoskeletal: Present: no clubbing or cyanosis - Routine Skin Exam Present: intact, dry, warm - Routine Neurological Exam Present: alert, moving all extremities - Routine Psychiatric Exam Present: cooperative Results - Labs CBC & Chem 7: 12/20/16 04:45 12/20/16 04:28 - Impressions Echo pending- prelim EF 58%. CXR- improving No acute fluid overload. Assessment and Plan (1) Febrile illness, acute Current visit: Yes Status: Acute (2) Tick bite Current visit: Yes Status: Acute (3) [id number]-tocxrbr renal failure Current visit: Yes Status: Acute (4) Atrial fibrillation Current visit: Yes Status: Chronic (5) Chronic anticoagulation Current visit: Yes Status: Chronic (6) HTN (hypertension) Current visit: Yes Status: Chronic (7) Severe sepsis Current visit: Yes Status: Acute DVT Prophylaxis: Eliquis GI Prophylaxis: Pepcid Resuscitation Status: Full Code Assessment and Plan: 12/20/16- *Acute febrile illness/Suspected Tick-Borne illness- Continue doxycycline. Serum titers pending. Pt. is afebrile overnoc. Ceftriaxone DC'd. Mild pancytopenia noted- likely due to sepsis. If tick-borne titers negative, consider WNV testing. He does not c/o headache or neck/back pain, so less likely. *AKF/CKD- Suspect due to hypotension with known CKD. baseline unclear (~1.8?) Decrease Norvasc 5mg, hold if SBP less than 130mmHg. Restart IVF at 100ml/hr. Check bladder scan to be sure there is no urinary retention. May need to allow mild passive hypertension for renal perfusion. Assess for rhabdo given increasing LFTs as well- higher risk for Rhabdo given Norvasc and Zocor tx- stop Zocor. Repeat labs this afternoon for stability with IVF restarted. *HFpEF/AFib/Chronic anticoagulation Need to resume IVF. No diuretics on board. He does not appear fluid overloaded. CXR is improved. May need to provide gentle diuretics with ongoing IVF given MICHAELLE- will monitor fluid status. Prelim echo pending. Dr. Wellington following. Ben in renal dosing. *DVT px- Eliquis. We can DC the SCD's. Repeat labs in AM. Continue telemetry. - Time spent with patient 25 - 35 minutes Sepsis Assessment - Evaluation Sepsis screening result: No Definite Risk Possible source: other (tick-borne possible) Confirmed Suspected Infection: Yes SIRS Criteria: temperature > or equal to 100.4 Severe Sepsis: bilirubin > 2 mg/dL Hospital Course Summary Disclaimer: The visit summary below is not to be considered part of the above Progress Note. Hospital Course: 12/19/16 14:21 Assessment: Fever most likely due to a tickborne illness. Chronic kidney disease now with a rapid increase in creatinine most likely secondary to dehydration and possible interstitial nephritis due to infection A fib currently stable on medication chronic HTN the patient has been hypotensive during the evening fluid was increased, Norvasc is on hold GERD OA chronic Plan: Continue oral doxycycline We will continue IV fluids which were started last night response to his low blood pressure and increased creatinine. His increased creatinine may be secondary to the underlying infection as that may also explain his hematuria which may represent interstitial nephritis. It should be noted the patient has CT scan done in [place] and December 16, at that time the kidneys showed normal enhancement without masses no radiodense stones or hydronephrosis. Continue OT and PT secondary to weakness, patient's family wonders if he might need physical therapy as an outpatient as well. We will DC ceftriaxone Will ask Dr. VERNON need to see the patient at the family's request Will recheck a BMP this afternoon to monitor his creatinine 12/20/16 10:52 *Acute febrile illness/Suspected Tick-Borne illness- Continue doxycycline. Serum titers pending. Pt. is afebrile overnoc. Ceftriaxone DC'd. Mild pancytopenia noted- likely due to sepsis. If tick-borne titers negative, consider WNV testing. He does not c/o headache or neck/back pain, so less likely. *AKF/CKD- Suspect due to hypotension with known CKD. baseline unclear (~1.8?) Decrease Norvasc 5mg, hold if SBP less than 130mmHg. Restart IVF at 100ml/hr. Check bladder scan to be sure there is no urinary retention. May need to allow mild passive hypertension for renal perfusion. Assess for rhabdo given increasing LFTs as well- higher risk for Rhabdo given Norvasc and Zocor tx- stop Zocor. Repeat labs this afternoon for stability with IVF restarted. *HFpEF/AFib/Chronic anticoagulation Need to resume IVF. No diuretics on board. He does not appear fluid overloaded. CXR is improved. May need to provide gentle diuretics with ongoing IVF given MICHAELLE- will monitor fluid status. Prelim echo pending. Dr. Wellington followingLuz Elena Contreras in renal dosing. *DVT px- Eliquis. We can DC the SCD's. Repeat labs in AM. Continue telemetry. <Gabriela Encarnacion - Last Filed: 12/20/16 15:31> Objective Vital signs: Temperature 95.5 F L 12/20/16 12:00 Pulse Rate 86 12/20/16 12:00 Respiratory Rate 18 12/20/16 12:00 Blood Pressure 110/65 12/20/16 12:00 Pulse Oximetry 98 12/20/16 12:00 Oxygen Delivery Method Nasal Cannula Oxygen Flow Rate 1 Results - Labs CBC & Chem 7: 12/20/16 04:45 12/20/16 14:55 Assessment and Plan (1) Febrile illness, acute Current visit: Yes Status: Acute (2) Atrial fibrillation Current visit: Yes Status: Chronic (3) HTN (hypertension) Current visit: Yes Status: Chronic (4) [place]jhyr-[place] renal failure Current visit: Yes Status: Acute (5) Chronic anticoagulation Current visit: Yes Status: Chronic (6) Tick bite Current visit: Yes Status: Acute (7) Severe sepsis Current visit: Yes Status: Acute Assessment and Plan: I have independently evaluated and examined this patient. I reviewed the chart, the patient's history, and the [employer]INE[employer]/PA"s documented findings as above. We discussed and formulated the assessment and plan as above with additions as below. The patient was seen at 1515 by me. His granddaughter, who is his caregiver, is at his side. She reports he seems to be lethargic and not quite as responsive as when she saw him 2 days ago. He is sitting in the recliner, when awakened, is able to idenitify where he is. Nurses at bedside to perform a bladder scan. PE as above- no signs of rash. His serologies for Anaplasma and E. chafeensis IGG Ab are negative, others are pending. Doubt this illness is related to WNV-will await further studies. AKF as noted- discussed with Dr. Wellington as well. Continue IV fluids and recheck lab in am. Hospital Course Summary Disclaimer: The visit summary below is not to be considered part of the above Progress Note. Addendum entered and electronically signed by Ellen Robertson APRN 12/20/16 10:55 : Bill inpatient level 2 follow up.
[2016-12-20] MEDS ORDERED: AMLODIPINE 10 MG TABLET PO SCH (10:51)
[2016-12-20] MEDS: NS 1,000 ML IV SCH ×2 (11:30→22:06)
[2016-12-20] MEDS: ACETAMINOPHEN 325 MG TABLET PO PRN ×2 (13:01→19:27)
--- NOTE | 2016-12-20 13:19 | Pharmacy Consult- Renal Dosing ---
[facility] Consul-Renal Dosing - Laboratory Information 12/19/16 12/19/16 12/20/16 05:07 13:26 04:28 BUN 32.0 H 34.0 H 39.0 H Creatinine 2.5 H D 2.7 H D 3.0 H D - Consult Information RENAL DOSING: Today's SCr = 3.0 mg/dl. Calculated CrCl = 22 ml/min. Reviewed patient's profile regarding renal dosing per Katy Robertson APRN consult. Apixaban, gabapentin and famotidine have decreased dosing regimens (famotidine is prn and has not been administered). The rest of the meds are ok as well. Thank you.
--- NOTE | 2016-12-20 14:03 | Echocardiogram ---
DATE OF PROCEDURE December 19, 2016 This is a two-dimensional echo with spectral Doppler, color-flow and M-mode. It was obtained in a patient with atrial fibrillation. Left atrium is dilated. Left ventricular end-diastolic dimension is normal. Left ventricular wall thickness is normal. LV systolic function is normal with ejection fraction of 59%. Right atrium is dilated. Right ventricle is normal. Aortic root dimension is normal. Mitral valve annulus is calcified. Mitral valve leaflets are normal with mild mitral regurgitation. Aortic valve shows mild fibrocalcific changes with no stenosis or insufficiency. Tricuspid valve shows mild tricuspid regurgitation with mild pulmonary hypertension with estimated pulmonary artery systolic pressure of 41. Pulmonary valve shows mild pulmonary insufficiency. There is no pericardial effusion. IMPRESSION 1. Left ventricular hypertrophy. 2. Normal LV systolic function with ejection fraction of 59%. 3. Biatrial dilation. 4. Mitral annulus calcification with mild mitral regurgitation. 5. Aortic sclerosis. 6. Mild tricuspid regurgitation with mild pulmonary hypertension with estimated pulmonary artery systolic pressure of 41. 7. Mild pulmonary insufficiency. MTDD
[2016-12-20] MEDS: TRAZODONE 50 MG TABLET PO SCH (22:08)
[2016-12-21] MEDS: ACETAMINOPHEN 325 MG TABLET PO PRN ×3 (05:12→19:33)
[2016-12-21] MEDS: NS 1,000 ML IV SCH (08:39)
[2016-12-21] MEDS: APIXABAN 5 MG TABLET PO SCH ×2 (09:29→21:52)
[2016-12-21] MEDS: DOCUSATE SODIUM 100 MG CAPSULE PO SCH ×2 (09:29→21:52)
[2016-12-21] MEDS: ALLOPURINOL 100 MG TABLET PO SCH (09:29)
[2016-12-21] MEDS: AMLODIPINE 5 MG TABLET PO SCH (09:29)
[2016-12-21] MEDS: GABAPENTIN 100 MG CAPSULE PO SCH ×2 (09:29→21:53)
[2016-12-21] MEDS: MULTI-VITAMIN PLAIN TABLET PO SCH (09:30)
[2016-12-21] MEDS ORDERED: POTASSIUM CHLORIDE INJ 20 MEQ in NS 1,000 ML IV SCH (14:17)
--- NOTE | 2016-12-21 14:20 | Progress Note ---
<Ellen Robertson - Last Filed: 12/21/16 14:17> Subjective: Ventura is seen today in follow up. He is up in chair. Had kirk placed earlier due to concern for urinary retention earlier today. Dark, moo urine output. No large volume urinary retention reported. Chart is reviewed. He remains afebrile. Reports some pain from hips down legs bilaterally, but he is a limited historian, so difficult to obtain time of onset. He reports some chronic pelvic and hip pain. He did have tylenol earlier today for pain. No abdominal sx reported. No N/V. No bowel changes reported. Grand-daughter is at bedside. I offered to answer questions, she declined. Objective Vital signs: Temperature 97.4 F 12/21/16 12:21 Pulse Rate 75 12/21/16 12:21 Respiratory Rate 20 12/21/16 12:21 Blood Pressure 138/69 12/21/16 12:21 Pulse Oximetry 94 12/21/16 12:21 Oxygen Delivery Method Room Air Oxygen Flow Rate 2 Weight: 236 lb 12.423 oz - Constitutional Present: no acute distress, well nourished, well developed, obese, cooperative - Routine HEENT Exam Head: Present: normocephalic, atraumatic Eye: Present: EOMI, PERRL. Absent: conjunctival icterus ENT: Present: mucous membranes moist - Routine Respiratory Exam Present: dyspnea (Mild at rest. ), decreased breath sounds, distant breath sounds. Absent: wheezes, crackles Comments: Mildly SOA at rest. Limited exam as pt is up in chair. - Routine Cardiovascular Exam Present: RRR, S1, S2, no murmur - Routine Abdominal Exam Present: soft, normoactive bowel sounds, non tender, distended. Absent: firm, rigid - Routine Exam Comments: Kirk- cloudy yellow urine. - Routine Extremities Exam Present: no edema - Routine Musculoskeletal Exam Musculoskeletal: Absent: no tenderness (Reports tenderness in both legs and knees. Limited historian) - Routine Neurological Exam Present: alert, moving all extremities - Routine Psychiatric Exam Present: cooperative Comments: Mild confusion- chronic? [place]. Results - Labs CBC & Chem 7: 12/21/16 04:11 12/21/16 04:11 - Imaging and Cardiology US - abdomen Status: image reviewed by me, pending Additional comments: Renal sono- No hydronephrosis. Bladder is partially distended. Assessment and Plan (1) Febrile illness, acute Current visit: Yes Status: Acute (2) Tick bite Current visit: Yes Status: Acute (3) [id number]-[id number] renal failure Current visit: Yes Status: Acute (4) Atrial fibrillation Current visit: Yes Status: Chronic (5) Chronic anticoagulation Current visit: Yes Status: Chronic (6) HTN (hypertension) Current visit: Yes Status: Chronic (7) Severe sepsis Current visit: Yes Status: Acute DVT Prophylaxis: Eliquis Resuscitation Status: Full Code Assessment and Plan: 12/21/16- *Acute febrile illness/Possible tick borne illness So far, serologies have been negative. Continue doxycycline for now. He is afebrile. LFTs climbing slowly, continues to demonstrate elevated CPK. Will order GB sono to R/O occult cholecystitis. *Acute Renal Failure/Elevated CPK- BP is normalizing. Continue IVF- will add low dose Lasix Q 8 hours to flush kidneys. Add some KCL to IVF to replace with diuresis. Repeat labs in AM. Kirk placed due to concern for retention. UOP remains marginal. *HTN- Doing well on lower dose of amlodipine. *Chronic pain- Gabapentin. *Hip pain/leg pain- Likely OA. Monitor. If persists, or worsens, could consider imaging. Fall is not documented. *Atrial Fib- Continue rate control/Eliquis. Extensive chart review. D/W pt and family. - Time spent with patient 25 - 35 minutes Sepsis Assessment - Evaluation Sepsis screening result: No Definite Risk Hospital Course Summary Disclaimer: The visit summary below is not to be considered part of the above Progress Note. Hospital Course: 12/19/16 14:21 Assessment: Fever most likely due to a tickborne illness. Chronic kidney disease now with a rapid increase in creatinine most likely secondary to dehydration and possible interstitial nephritis due to infection A fib currently stable on medication chronic HTN the patient has been hypotensive during the evening fluid was increased, Norvasc is on hold GERD OA chronic Plan: Continue oral doxycycline We will continue IV fluids which were started last night response to his low blood pressure and increased creatinine. His increased creatinine may be secondary to the underlying infection as that may also explain his hematuria which may represent interstitial nephritis. It should be noted the patient has CT scan done in and December 16, at that time the kidneys showed normal enhancement without masses no radiodense stones or hydronephrosis. Continue OT and PT secondary to weakness, patient's family wonders if he might need physical therapy as an outpatient as well. We will DC ceftriaxone Will ask Dr. VERNON need to see the patient at the family's request Will recheck a BMP this afternoon to monitor his creatinine 12/20/16 10:52 *Acute febrile illness/Suspected Tick-Borne illness- Continue doxycycline. Serum titers pending. Pt. is afebrile overnoc. Ceftriaxone DC'd. Mild pancytopenia noted- likely due to sepsis. If tick-borne titers negative, consider WNV testing. He does not c/o headache or neck/back pain, so less likely. *AKF/CKD- Suspect due to hypotension with known CKD. baseline unclear (~1.8?) Decrease Norvasc 5mg, hold if SBP less than 130mmHg. Restart IVF at 100ml/hr. Check bladder scan to be sure there is no urinary retention. May need to allow mild passive hypertension for renal perfusion. Assess for rhabdo given increasing LFTs as well- higher risk for Rhabdo given Norvasc and Zocor tx- stop Zocor. Repeat labs this afternoon for stability with IVF restarted. *HFpEF/AFib/Chronic anticoagulation Need to resume IVF. No diuretics on board. He does not appear fluid overloaded. CXR is improved. May need to provide gentle diuretics with ongoing IVF given MICHAELLE- will monitor fluid status. Prelim echo pending. Dr. Amish ortega. Ben in renal dosing. *DVT px- Eliquis. We can DC the SCD's. Repeat labs in AM. Continue telemetry. 12/21/16 14:27 *Acute febrile illness/Possible tick borne illness So far, serologies have been negative. Continue doxycycline for now. He is afebrile. LFTs climbing slowly, continues to demonstrate elevated CPK. Will order GB sono to R/O occult cholecystitis. *Acute Renal Failure/Elevated CPK- BP is normalizing. Continue IVF- will add low dose Lasix Q 8 hours to flush kidneys. Add some KCL to IVF to replace with diuresis. Repeat labs in AM. Kirk placed due to concern for retention. UOP remains marginal. *HTN- Doing well on lower dose of amlodipine. *Chronic pain- Gabapentin. *Hip pain/leg pain- Likely OA. Monitor. If persists, or worsens, could consider imaging. Fall is not documented. *Atrial Fib- Continue rate control/Eliquis. <Gabriela Encarnacion - Last Filed: 12/21/16 16:50> Objective Vital signs: Temperature 98.2 F 12/21/16 15:39 Pulse Rate 80 12/21/16 16:00 Respiratory Rate 22 12/21/16 15:39 Blood Pressure 132/61 12/21/16 15:39 Pulse Oximetry 94 12/21/16 15:39 Oxygen Delivery Method Room Air Oxygen Flow Rate 2 Results - Labs CBC & Chem 7: 12/21/16 04:11 12/21/16 04:11 Assessment and Plan (1) Febrile illness, acute Current visit: Yes Status: Acute (2) Atrial fibrillation Current visit: Yes Status: Chronic (3) HTN (hypertension) Current visit: Yes Status: Chronic (4) Ipyki-[id number] renal failure Current visit: Yes Status: Acute (5) Chronic anticoagulation Current visit: Yes Status: Chronic (6) Tick bite Current visit: Yes Status: Acute (7) Severe sepsis Current visit: Yes Status: Acute Assessment and Plan: I have independently evaluated and examined this patient. I reviewed the chart, the patient's history, and the BODY LINER/PA's documented findings as above. We discussed and formulated the assessment and plan as above with additions as below. Microbiology 12/17/16 20:26 Peripheral/Iv Start Blood Culture - Preliminary No Growth After 3 Days 12/17/16 20:26 Peripheral/Iv Start Blood Culture - Preliminary No Growth After 2 Days Selected Entries 12/18/16 08:14 12/20/16 08:55 12/20/16 10:53 Weight 225 lb 8.526 oz 232 lb 232 lb Temperature Pulse Rate Respiratory Rate Respiratory Effort Blood Pressure Pulse Oximetry 12/21/16 08:00 12/21/16 14:28 12/21/16 15:39 Weight 236 lb 12.423 oz Temperature 98.2 F Pulse Rate 79 Respiratory Rate 22 Respiratory Effort Spontaneous Non-Labored Blood Pressure 132/61 Pulse Oximetry 94 Laboratory Tests 12/17/16 12/18/16 12/18/16 20:26 00:17 04:30 Creatinine 1.8 H AST 101 H D ALT Alkaline Phosphatase A. phagocytophilum IgG <1:64 A. phagocytophilum Cmmt Negative Lyme Total Antibody Negative E. chaffeensis IgG Ab <1:64 E.chaffeensis DNA (PCR) Negative E. ewingii/canis (PCR) Negative E. muris-like DNA (PCR) Negative Rickettsia Ab (Spotted <1:16 [place]aremia Antibody Pending 12/19/16 12/19/16 12/20/16 05:07 13:26 04:28 Creatinine 2.5 H D 2.7 H D 3.0 H D AST 138 H 140 H ALT 92 H 92 H Alkaline Phosphatase 124 D 152 H A. phagocytophilum IgG A. phagocytophilum Cmmt Lyme Total Antibody E. chaffeensis IgG Ab E.chaffeensis DNA (PCR) E. ewingii/canis (PCR) E. muris-like DNA (PCR) Rickettsia Ab (Spotted [place] Antibody Pt was examined by me at 16:15 Granddaughter relays family's concerns about weakness and mental status. She notes that he doesn't have any focal findings-but seems to be more lethargic, has difficulty raising a glass to his lips, but no observed aphasia, difficulty with speech or weakness in his arms or legs. The family is concerned because he had similar symptoms years ago when he had a mini stroke. On physical exam: Skin:He seems to have a faint pink macular papular rash on his upper inner arms but it is not generalized Neuro- awakens easily, follows commands, minimal left facial droop, no tongue deviation or fasciculations, moves all extremities equally Assessment as above- Will check CT of head without contrast Unable to find OT/PT eval on chart, will reconsult Continue Doxycycline Check lab in am Hospital Course Summary Disclaimer: The visit summary below is not to be considered part of the above Progress Note.
[2016-12-21] MEDS: FUROSEMIDE 20 MG/2 ML INJECTION IVP SCH ×2 (14:56→18:17)
[2016-12-21] MEDS: SALINE FLUSH 10ml SYRINGE IVF PRN (15:01)
[2016-12-21] MEDS: NS with KCL 20 mEq 1,000 ML IV SCH (15:01)
[2016-12-21] MEDS: TRAZODONE 50 MG TABLET PO SCH (21:52)
[2016-12-21] MEDS: DONEPEZIL 5 MG TABLET PO SCH (21:53)
[2016-12-22] MEDS: FUROSEMIDE 20 MG/2 ML INJECTION IVP SCH ×2 (01:14→09:06)
[2016-12-22] MEDS: NS with KCL 20 mEq 1,000 ML IV SCH ×2 (01:15→17:32)
--- NOTE | 2016-12-22 07:26 | CT Scan Report ---
Indication: lethargy, hx of previous CVA PROCEDURE: CT head/brain wo con: Encounter: Initial Comparison: Head CT dated March 27, 2015 Technique: Axial CT images through the head were performed without contrast. Iterative Reconstruction dose reducing technique was utilized. 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 The ventricles are of normal size, shape, and contour for the patient's age. There are scattered areas of low attenuation in the white matter which most likely represent changes from chronic microvascular ischemia. The brainstem, cerebellum, and cerebral hemispheres otherwise have a normal morphology and CT attenuation. There is no evidence of midline displacement. No hemorrhage, signs of acute territorial stroke, mass effect, mass lesions, or edema is evident. The visualized portions of the skull base, midface, and calvarium demonstrate no abnormality. Mild sinus disease. The tympanic and mastoid cavities appear normal. IMPRESSION: No acute intracranial abnormality or hemorrhage. 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 There is a preliminary report by [facility]. .
--- NOTE | 2016-12-22 07:29 | Ultrasound Report ---
Indication: Renal failure PROCEDURE: US renal BI: Encounter: Initial Comparison: None Technique: Grayscale and color Doppler sonographic imaging of both kidneys and bladder was performed. FINDINGS: Both kidneys are present with mild cortical loss and normal echogenicity. No evidence for collecting system dilatation, contour deforming mass, nephrolithiasis, or abnormal perinephric fluid collection. The right kidney measures 13 cm in length, and the left kidney measures 12.7 cm in length. Simple appearing 2.9 cm cyst in the left kidney inferiorly. Bladder appears sonographically normal without focal debris or mass. Bladder volume is relatively low at only 55.5 mL. IMPRESSION: No hydronephrosis There is a preliminary report by [facility]. .
--- NOTE | 2016-12-22 08:07 | Ultrasound Report ---
Indication: Elevated LFTS, fever PROCEDURE: US gall bladder: Encounter: Initial Comparison: None Findings: Gallbladder: No calculi cannot exclude trace pericholecystic fluid. No significant wall thickening. Common bile duct: Upper of normal of 7 mm at the pancreatic head Liver: Unremarkable Aorta/IVC: Unremarkable Right kidney: Unremarkable Morison's pouch: Unremarkable Impression: 1. Negative for cholelithiasis; question trace pericholecystic fluid. 2. Common bile duct upper limits of normal in diameter. .
[2016-12-22] MEDS: GABAPENTIN 100 MG CAPSULE PO SCH (09:05)
[2016-12-22] MEDS: APIXABAN 5 MG TABLET PO SCH ×2 (09:05→21:39)
[2016-12-22] MEDS: MULTI-VITAMIN PLAIN TABLET PO SCH (09:06)
[2016-12-22] MEDS: AMLODIPINE 5 MG TABLET PO SCH (09:06)
[2016-12-22] MEDS: ALLOPURINOL 100 MG TABLET PO SCH (09:06)
[2016-12-22] MEDS: DOCUSATE SODIUM 100 MG CAPSULE PO SCH ×2 (09:06→21:40)
[2016-12-22] MEDS: SALINE FLUSH 10ml SYRINGE IVF PRN ×3 (09:06→21:41)
[2016-12-22] MEDS: ACETAMINOPHEN 325 MG TABLET PO PRN (10:24)
--- NOTE | 2016-12-22 12:36 | Cardiology Progress Note ---
Subjective Principal diagnosis: Atrial Fibrillation <Ophelia Carvalho 12/22/16 12:36> Interval history: CC: AFIB Pt sitting in chair this AM. States he is doing better. States breathing is better, remains on supplemental O2 per [place]. States he has had occasional light- headed/dizziness when getting OOB. Denies any CP, palpitations, and/or diaphoresis. <Ophelia Carvalho 12/22/16 13:05> Exam Vital signs: Temperature 96.3 F L 12/25/16 07:43 Pulse Rate 74 12/25/16 07:43 Respiratory Rate 18 12/25/16 07:43 Blood Pressure 152/69 H 12/25/16 07:43 Pulse Oximetry 94 12/25/16 09:55 Oxygen Delivery Method Room Air Oxygen Flow Rate 76 <Ponce Wellington - 12/25/16 12:43> Temperature 98.2 F 12/22/16 11:41 Pulse Rate 71 12/22/16 11:41 Respiratory Rate 16 12/22/16 11:41 Blood Pressure 102/60 12/22/16 11:41 Pulse Oximetry 97 12/22/16 11:41 Oxygen Delivery Method Nasal Cannula Oxygen Flow Rate 1 <Ophelia Carvalho 12/22/16 13:05> - Constitutional no acute distress, obese, cooperative <Ophelia Carvalho 12/22/16 13:05> - Routine HEENT Exam Head: Present: normocephalic <Ophelia Carvalho 12/22/16 13:05> Eye: Present: EOMI <Ophelia Carvalho 12/22/16 13:05> ENT: Present: mucous membranes moist <Ophelia Carvalho 12/22/16 13:05> - Routine Neck Exam Absent: JVD, carotid bruit, lymphadenopathy <Ophelia Carvalho 12/22/16 13:05> - Routine Respiratory Exam Present: decreased breath sounds. Absent: respiratory distress, wheezes < Ophelia Cavralho 12/22/16 13:09> - Routine Abdominal Exam Present: soft, normoactive bowel sounds, non tender, distended <Ophelia Carvalho 12/22/16 13:09> - Routine Extremities Exam Present: edema, pulses intact <Ophelia Carvalho 12/22/16 13:09> Comments: Trace edema to BLE <Ophelia Caravlho - 12/22/16 13:09> - Routine Neurological Exam Present: alert, oriented X3 <Ophelia Carvalho 12/22/16 13:09> - Routine Psychiatric Exam Present: normal affect, cooperative <Ophelia Carvalho 12/22/16 13:09> - Additional findings Additional findings: 12/22/16 04:15 12/22/16 04:15 Type of Exam(s): US gall bladder Reason for Exam(s): Elevated LFTS, fever Indication: Elevated LFTS, fever PROCEDURE: US gall bladder: Encounter: Initial Comparison: None Findings: Gallbladder: No calculi cannot exclude trace pericholecystic fluid. No significant wall thickening. Common bile duct: Upper of normal of 7 mm at the pancreatic head Liver: Unremarkable Aorta/IVC: Unremarkable Right kidney: Unremarkable Morison's pouch: Unremarkable Impression: 1. Negative for cholelithiasis; question trace pericholecystic fluid. 2. Common bile duct upper limits of normal in diameter. Type of Exam(s): CT head/brain wo con Reason for Exam(s): lethargy, hx of previous CVA Indication: lethargy, hx of previous CVA PROCEDURE: CT head/brain wo con: Encounter: Initial Comparison: Head CT dated March 27, 2015 Technique: Axial CT images through the head were performed without contrast. Iterative Reconstruction dose reducing technique was utilized. 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 The ventricles are of normal size, shape, and contour for the patient's age. There are scattered areas of low attenuation in the white matter which most likely represent changes from chronic microvascular ischemia. The brainstem, cerebellum, and cerebral hemispheres otherwise have a normal morphology and CT attenuation. There is no evidence of midline displacement. No hemorrhage, signs of acute territorial stroke, mass effect, mass lesions, or edema is evident. The visualized portions of the skull base, midface, and calvarium demonstrate no abnormality. Mild sinus disease. The tympanic and mastoid cavities appear normal. IMPRESSION: No acute intracranial abnormality or hemorrhage. 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 There is a preliminary report by virtual radiologic. Date of Exam: 12/21/16 Ordering Provider: Ellen Robertson APRN Type of Exam(s): US renal BI Reason for Exam(s): Renal failure Indication: Renal failure PROCEDURE: US renal BI: Encounter: Initial Comparison: None Technique: Grayscale and color Doppler sonographic imaging of both kidneys and bladder was performed. FINDINGS: Both kidneys are present with mild cortical loss and normal echogenicity. No evidence for collecting system dilatation, contour deforming mass, nephrolithiasis, or abnormal perinephric fluid collection. The right kidney measures 13 cm in length, and the left kidney measures 12.7 cm in length. Simple appearing 2.9 cm cyst in the left kidney inferiorly. Bladder appears sonographically normal without focal debris or mass. Bladder volume is relatively low at only 55.5 mL. IMPRESSION: No hydronephrosis There is a preliminary report by virtual radiologic. <EctonOphelia 12/22/16 13:44> - Urinary Catheter Management Urethral Cath placed during this visit: no <Ponce Wellington - 12/25/16 12:43> yes <EctonOphelia R 12/24/16 21:41> Urethral indwelling: Yes <EctonOphelia R 12/22/16 13:15> Reason for continuing: Acute Urinary Retention <Ecton,Ophelia R 12/22/16 13:15 > Insertion date: 12/21/16 <Ecton,Ophelia R 12/22/16 12:36> Insertion time: 11:25 <Ecton,Ophelia R 12/22/16 12:36> Progress Note-A&P (1) Atrial fibrillation Status: Chronic Current Visit: Yes (2) Pacemaker Status: Chronic Current Visit: Yes (3) HTN (hypertension) Status: Chronic Current Visit: Yes (4) [id number] renal failure Problem details: Stage III CKD. Status: Acute Current Visit: Yes <Ponce Wellington - 12/25/16 12:43> (1) Atrial fibrillation Status: Chronic Assessment and plan: Continue home anticoagulation with Eliques 2.5mg bid. Con't to monitor tele, rate control tolerable given pt's recent hypotension which is improving. BNP 4130. Current Visit: Yes (2) [id number] renal failure Problem details: Stage III CKD. 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 LFt's elevated. IVF still running. After discussion with Dr. Encarnacion was notified pt had urinary retention over the weekend. D/t retention kirk placed & IVF started with IV lasix to attempt to improve kidney function. Was discussed later in the day with Dr. Wellington and Dr. Encarnacion that d/t elevated LFT's and unchanged fuel agent; even after IVF, that maybe risking possible fluid overload & IVF were discontinued at this time. Continue to monitor I&O, wts and lab. Current Visit: Yes (3) HTN (hypertension) Status: Chronic Assessment and plan: BP just starting to improve.Con't to hold Norvasc and monitor closely. Current Visit: Yes (4) Pacemaker Status: Chronic Current Visit: Yes <Ophelia Carvalho R 12/24/16 21:29> - Time Spent With Patient Total time spent is greater than 50% in coordination of care (as documented) at patient's floor/unit and/or counseling patient: <Ponce Wellington - 12/25/16 12:43> Total time spent is greater than 50% in coordination of care (as documented) at patient's floor/unit and/or counseling patient: <Ophelia Carvalho R 12/22/16 12:36> 25 - 35 minutes <Ophelia Carvalho R - 12/24/16 21:41> - Attestation Attestation Narrative: Recommendation After examining the patient I agree with the above assessment. I am involved in the formulation of the patient's plan of care. <Ponce Wellington - 12/25/16 12:43> Sepsis Assessment - Evaluation Sepsis screening result: No Definite Risk <Ophelia Carvalho R 12/22/16 12:36> Hospital Course Summary Disclaimer: The visit summary below is not to be considered part of the above Progress Note. <Ponce Wellington - 12/25/16 12:43> The visit summary below is not to be considered part of the above Progress Note. <Ophelia Carvalho - 12/22/16 12:36> Hospital Course: 12/19/16 14:21 Assessment: Fever most likely due to a tickborne illness. Chronic kidney disease now with a rapid increase in creatinine most likely secondary to dehydration and possible interstitial nephritis due to infection A fib currently stable on medication chronic HTN the patient has been hypotensive during the evening fluid was increased, Norvasc is on hold GERD OA chronic Plan: Continue oral doxycycline We will continue IV fluids which were started last night response to his low blood pressure and increased creatinine. His increased creatinine may be secondary to the underlying infection as that may also explain his hematuria which may represent interstitial nephritis. It should be noted the patient has CT scan done in and December 16, at that time the kidneys showed normal enhancement without masses no radiodense stones or hydronephrosis. Continue OT and PT secondary to weakness, patient's family wonders if he might need physical therapy as an outpatient as well. We will DC ceftriaxone Will ask Dr. VERNON need to see the patient at the family's request Will recheck a BMP this afternoon to monitor his creatinine 12/20/16 10:52 *Acute febrile illness/Suspected Tick-Borne illness- Continue doxycycline. Serum titers pending. Pt. is afebrile overnoc. Ceftriaxone DC'd. Mild pancytopenia noted- likely due to sepsis. If tick-borne titers negative, consider WNV testing. He does not c/o headache or neck/back pain, so less likely. *AKF/CKD- Suspect due to hypotension with known CKD. baseline unclear (~1.8?) Decrease Norvasc 5mg, hold if SBP less than 130mmHg. Restart IVF at 100ml/hr. Check bladder scan to be sure there is no urinary retention. May need to allow mild passive hypertension for renal perfusion. Assess for rhabdo given increasing LFTs as well- higher risk for Rhabdo given Norvasc and Zocor tx- stop Zocor. Repeat labs this afternoon for stability with IVF restarted. *HFpEF/AFib/Chronic anticoagulation Need to resume IVF. No diuretics on board. He does not appear fluid overloaded. CXR is improved. May need to provide gentle diuretics with ongoing IVF given MICHAELLE- will monitor fluid status. Prelim echo pending. Dr. Wellington following. Zoquis in renal dosing. *DVT px- Eliquis. We can DC the SCD's. Repeat labs in AM. Continue telemetry. 12/21/16 14:27 *Acute febrile illness/Possible tick borne illness So far, serologies have been negative. Continue doxycycline for now. He is afebrile. LFTs climbing slowly, continues to demonstrate elevated CPK. Will order GB sono to R/O occult cholecystitis. *Acute Renal Failure/Elevated CPK- BP is normalizing. Continue IVF- will add low dose Lasix Q 8 hours to flush kidneys. Add some KCL to IVF to replace with diuresis. Repeat labs in AM. Kirk placed due to concern for retention. UOP remains marginal. *HTN- Doing well on lower dose of amlodipine. *Chronic pain- Gabapentin. *Hip pain/leg pain- Likely OA. Monitor. If persists, or worsens, could consider imaging. Fall is not documented. *Atrial Fib- Continue rate control/Eliquis. <Ophelia Carvalho R - 12/22/16 13:49> Medications Home Medications Medication Instructions Recorded Confirmed Type Docusate Sodium [Stool Softener] 100 mg PO BID #0 cap 03/27/15 12/17/16 History Famotidine 1 tab PO PRN #0 tab 03/27/15 12/17/16 History Gabapentin 100 mg PO DAILY #0 cap 03/27/15 12/17/16 History Simvastatin 40 mg PO HS #0 tab 03/27/15 12/17/16 History Amlodipine Besylate 10 mg PO DAILY #0 tab 06/26/15 12/17/16 History Triamcinolone 0.25% Cream 15G 1 applic TOP PRN #30 gm 06/26/15 12/17/16 History [Kenalog] Allopurinol [Zyloprim] 100 mg PO DAILY 12/17/16 12/17/16 History Donepezil [Aricept] 5 mg PO DAILY 12/17/16 12/17/16 History Gabapentin [Neurontin] 200 mg PO HS 12/17/16 12/17/16 History Multivitamin [One Daily 1 each PO DAILY 12/17/16 12/17/16 History Multivitamin] Trazodone [Desyrel] 50 mg PO HS 12/17/16 12/17/16 History <Ponce Wellington - 12/25/16 12:43> Allergies Allergy/AdvReac Type Severity Reaction Status Date / Time hydrochlorothiazide AdvReac Intermediate kidney Verified 12/17/16 20:09 damage lisinopril AdvReac Mild Cough Verified 12/17/16 20:07 furosemide [From Lasix] AdvReac kidney Verified 12/17/16 20:09 damage indomethacin AdvReac kidney Verified 12/17/16 20:09 damage metoprolol AdvReac Atrial Verified 12/17/16 20:08 Fibrillation rivaroxaban [From Xarelto] AdvReac Atrial Verified 12/17/16 20:08 Fibrillation <Ponce Wellington - 12/25/16 12:43> Addendum entered and electronically signed by Ophelia Carvalho APRN 12/24/16 21: 55: Correction to A/P: Acute/Chronic Kidney - IV lasix was discontinued not started. Addendum entered and electronically signed by Ophelia Carvalho APRN 12/25/16 07: 12: CARD: Irregular, no JVD, no rub.
[2016-12-22] MEDS: HYDROCODONE/APAP 5mg/325mg TABLET PO PRN ×2 (13:03→21:39)
[2016-12-22] MEDS ORDERED: D5W IV SCH (14:30)
[2016-12-22] MEDS ORDERED: SODIUM ACETATE IV SCH (14:30)
--- NOTE | 2016-12-22 15:26 | Progress Note ---
Subjective: The patient was seen 9:55 at with granddaughter at bedside. The granddaughter is concerned that he still seems lethargic similar to yesterday..Denies fevers, chills, sweats. Denies sore throat, shortness of breath, dyspnea on exertion, cough, sputum production, chest pain. Denies nausea , or diarrhea. Last evening he complained of heartburn, he was given a Pepcid which she promptly threw up and then was given IV Zofran with good response. He has a Christianson in place. He is receiving IV fluids. He walked with physical therapy this morning and he had his bath with OT. The daughter reports that he seems to be slightly confused. Objective Vital signs: Temperature 98.2 F 12/22/16 11:41 Pulse Rate 71 12/22/16 11:41 Respiratory Rate 16 12/22/16 11:41 Blood Pressure 102/60 12/22/16 11:41 Pulse Oximetry 94 12/22/16 14:58 Oxygen Delivery Method Nasal Cannula Oxygen Flow Rate 1 Selected Entries 12/18/16 18:10 12/19/16 00:00 12/20/16 00:17 Temperature 102.2 F H 101.5 F H 100.5 F H Blood Pressure Pulse Oximetry Oxygen Delivery Method Oxygen Flow Rate 12/21/16 07:24 12/21/16 15:39 12/21/16 20:00 Temperature 98.5 F Blood Pressure 132/61 140/63 H Pulse Oximetry Oxygen Delivery Method Oxygen Flow Rate 12/22/16 00:00 12/22/16 07:26 12/22/16 10:44 Temperature Blood Pressure 112/64 113/69 Pulse Oximetry Oxygen Delivery Method Oxygen Flow Rate 2 12/22/16 11:41 Temperature 98.2 F Blood Pressure Pulse Oximetry 97 Oxygen Delivery Method Nasal Cannula Oxygen Flow Rate 1 Weight: 238 lb 1.588 oz - Additional findings Additional findings: In general, the patient is sitting in the bedside chair and alert,oriented 3, cooperative with exam, and in no respiratory distress. HEENT: Head is atraumatic, normocephalic, no conjunctival petechiae, Lungs: Clear to auscultation without wheezes, crackles or rhonchi CV: Irregularly irregular Abdomen: Soft, nontender, slightly distended, bowel sounds are present, there is no guarding no rebound. Extremities: No clubbing, no cyanosis, no edema. Skin: Warm and dry no sign of rash Neuro: Moves all 4, no focal abnormalities Back: He complains of back pain is diffusely tender with palpation but without point tenderness,no evidence of a rash. He seems to be more tender in the lower back. Christianson in place Results - Labs CBC & Chem 7: 12/22/16 04:15 12/22/16 04:15 Labs: Laboratory Tests 12/18/16 12/18/16 12/18/16 00:17 04:30 04:30 Plt Count 87 L Band Neutrophils % 23.0 H Creatinine 1.8 H Calcium 8.3 L D Total Bilirubin 1.30 AST 101 H D ALT 70 [place] Antibody Pending 12/19/16 12/19/16 12/19/16 05:07 05:07 13:26 Plt Count 62 L Band Neutrophils % 39.0 H D Creatinine 2.5 H D 2.7 H D Calcium Total Bilirubin AST 138 H ALT 92 H [place] Antibody 12/20/16 12/20/16 12/20/16 04:28 04:45 14:55 Plt Count 62 L Band Neutrophils % Creatinine 3.0 H D 3.0 H Calcium Total Bilirubin AST 140 H ALT 92 H [place] Antibody 12/21/16 12/21/16 12/21/16 04:11 04:11 04:11 Plt Count 64 L Band Neutrophils % 29.0 H D Creatinine 3.0 H Calcium Total Bilirubin AST 143 H ALT 91 H [place] Antibody 12/22/16 12/22/16 04:15 04:15 Plt Count 65 L Band Neutrophils % Creatinine 3.1 H Calcium 7.5 L Total Bilirubin 3.30 H AST 221 H D ALT 122 H [place] Antibody - Impressions Gallbladder sono: 12/22/16 Gallbladder: No calculi cannot exclude trace pericholecystic fluid. No significant wall thickening. Common bile duct: Upper of normal of 7 mm at the pancreatic head Liver: Unremarkable Aorta/IVC: Unremarkable Right kidney: Unremarkable Morison's pouch: Unremarkable Impression: 1. Negative for cholelithiasis; question trace pericholecystic fluid. 2. Common bile duct upper limits of normal in diameter. 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 The ventricles are of normal size, shape, and contour for the patient's age. There are scattered areas of low attenuation in the white matter which most likely represent changes from chronic microvascular ischemia. The brainstem, cerebellum, and cerebral hemispheres otherwise have a normal morphology and CT attenuation. There is no evidence of midline displacement. No hemorrhage, signs of acute territorial stroke, mass effect, mass lesions, or edema is evident. The visualized portions of the skull base, midface, and calvarium demonstrate no abnormality. Mild sinus disease. The tympanic and mastoid cavities appear normal. IMPRESSION: No acute intracranial abnormality or hemorrhage. 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 Assessment and Plan (1) Febrile illness, acute Current visit: Yes Status: Acute (2) Atrial fibrillation Current visit: Yes Status: Chronic (3) HTN (hypertension) Current visit: Yes Status: Chronic (4) Hbbke-op-vakwpci renal failure Current visit: Yes Status: Acute (5) Chronic anticoagulation Current visit: Yes Status: Chronic (6) Tick bite Current visit: Yes Status: Acute Assessment and Plan: please disregard this area of the note which should not be part of today's active progress note Selected Entries 12/18/16 08:14 12/20/16 08:55 12/20/16 10:53 Weight 225 lb 8.526 oz 232 lb 232 lb Temperature Pulse Rate Respiratory Rate Respiratory Effort Blood Pressure Pulse Oximetry 12/21/16 08:00 12/21/16 14:28 12/21/16 15:39 Weight 236 lb 12.423 oz Temperature 98.2 F Pulse Rate 79 Respiratory Rate 22 Respiratory Effort Spontaneous Non-Labored Blood Pressure 132/61 Pulse Oximetry 94 Laboratory Tests 12/17/16 12/18/16 12/18/16 20:26 00:17 04:30 Creatinine 1.8 H AST 101 H D ALT Alkaline Phosphatase A. phagocytophilum IgG <1:64 A. phagocytophilum Cmmt Negative Lyme Total Antibody Negative E. chaffeensis IgG Ab <1:64 E.chaffeensis DNA (PCR) Negative E. ewingii/canis (PCR) Negative E. muris-like DNA (PCR) Negative Rickettsia Ab (Spotted <1:16 [place] Antibody Pending 12/19/16 12/19/16 12/20/16 05:07 13:26 04:28 Creatinine 2.5 H D 2.7 H D 3.0 H D AST 138 H 140 H ALT 92 H 92 H Alkaline Phosphatase 124 D 152 H A. phagocytophilum IgG A. phagocytophilum Cmmt Lyme Total Antibody E. chaffeensis IgG Ab E.chaffeensis DNA (PCR) E. ewingii/canis (PCR) E. muris-like DNA (PCR) Rickettsia Ab (Spotted Tul[place]mia Antibody Please disregard the above part of the notes which should not be part of today' s current note. Assessment: Resolved Fever-infection most likely due to a tickborne illness, most likely tularemia.. Tularemia serology is pending. The lab is sent to [facility] and has a four-day turnaround time it is expected to be run on Thursday. Acute on Chronic renal failure, creatinine today is 3.1, most likely secondary to dehydration and possible interstitial nephritis due to infection A fib currently stable on medication-Dr. Leong is following Pacemaker in place Chronic HTN the patient has been hypotensive previously, Norvasc is on hold GERD OA chronic Acute elevated liver function tests suspect this is secondary to multisystem organ effects from infection Thrombocytopenia most likely secondary to infection Plan: Reviewed medications with pharmacist- secondary to lethargy will decrease gabapentin to 100 mg by mouth daily we'll hold Aricept, and trazodone and reevaluate in the morning CT of head without contrast results were discussed with his granddaughter no acute changes OT and PT did see the patient today. He may benefit from rehabilitation after his acute stay. Continue Doxycycline IV fluids and status reviewed with cardiology. Given his mild acidosis will start D5W with 2 amps of sodium acetate (there is a nationwide shortage of sodium bicarbonate), d/c lasix Check lab in am including CBC with manual differential, basic metabolic profile , and liver panel. The patient may benefit from more aggressive nephrology input if his creatinine does not turn around with current therapy - Time spent with patient greater than 35 minutes (Pt discussed with family, nursing, cardiology and pharmacy) Sepsis Assessment - Evaluation Sepsis screening result: No Definite Risk Hospital Course Summary Disclaimer: The visit summary below is not to be considered part of the above Progress Note. Hospital Course: 12/19/16 14:21 Assessment: Fever most likely due to a tickborne illness. Chronic kidney disease now with a rapid increase in creatinine most likely secondary to dehydration and possible interstitial nephritis due to infection A fib currently stable on medication chronic HTN the patient has been hypotensive during the evening fluid was increased, Norvasc is on hold GERD OA chronic Plan: Continue oral doxycycline We will continue IV fluids which were started last night response to his low blood pressure and increased creatinine. His increased creatinine may be secondary to the underlying infection as that may also explain his hematuria which may represent interstitial nephritis. It should be noted the patient has CT scan done in and December 16, at that time the kidneys showed normal enhancement without masses no radiodense stones or hydronephrosis. Continue OT and PT secondary to weakness, patient's family wonders if he might need physical therapy as an outpatient as well. We will DC ceftriaxone Will ask Dr. VERNON need to see the patient at the family's request Will recheck a BMP this afternoon to monitor his creatinine 12/20/16 10:52 *Acute febrile illness/Suspected Tick-Borne illness- Continue doxycycline. Serum titers pending. Pt. is afebrile overnoc. Ceftriaxone DC'd. Mild pancytopenia noted- likely due to sepsis. If tick-borne titers negative, consider WNV testing. He does not c/o headache or neck/back pain, so less likely. *AKF/CKD- Suspect due to hypotension with known CKD. baseline unclear (~1.8?) Decrease Norvasc 5mg, hold if SBP less than 130mmHg. Restart IVF at 100ml/hr. Check bladder scan to be sure there is no urinary retention. May need to allow mild passive hypertension for renal perfusion. Assess for rhabdo given increasing LFTs as well- higher risk for Rhabdo given Norvasc and Zocor tx- stop Zocor. Repeat labs this afternoon for stability with IVF restarted. *HFpEF/AFib/Chronic anticoagulation Need to resume IVF. No diuretics on board. He does not appear fluid overloaded. CXR is improved. May need to provide gentle diuretics with ongoing IVF given MICHAELLE- will monitor fluid status. Prelim echo pending. Dr. Wellington followingLuz Elena Contreras in renal dosing. *DVT px- Eliquis. We can DC the SCD's. Repeat labs in AM. Continue telemetry. 12/21/16 14:27 *Acute febrile illness/Possible tick borne illness So far, serologies have been negative. Continue doxycycline for now. He is afebrile. LFTs climbing slowly, continues to demonstrate elevated CPK. Will order GB sono to R/O occult cholecystitis. *Acute Renal Failure/Elevated CPK- BP is normalizing. Continue IVF- will add low dose Lasix Q 8 hours to flush kidneys. Add some KCL to IVF to replace with diuresis. Repeat labs in AM. Christianson placed due to concern for retention. UOP remains marginal. *HTN- Doing well on lower dose of amlodipine. *Chronic pain- Gabapentin. *Hip pain/leg pain- Likely OA. Monitor. If persists, or worsens, could consider imaging. Fall is not documented. *Atrial Fib- Continue rate control/Eliquis. Granddaughter relays family's concerns about weakness and mental status. She notes that he doesn't have any focal findings-but seems to be more lethargic, has difficulty raising a glass to his lips, but no observed aphasia, difficulty with speech or weakness in his arms or legs. The family is concerned because he had similar symptoms years ago when he had a mini stroke. On physical exam: Skin:He seems to have a faint pink macular papular rash on his upper inner arms but it is not generalized Neuro- awakens easily, follows commands, minimal left facial droop, no tongue deviation or fasciculations, moves all extremities equally Assessment as above- Will check CT of head without contrast Unable to find OT/PT eval on chart, will reconsult Continue Doxycycline Check lab in am 12/22/16 15:36 Assessment: Resolved Fever-infection most likely due to a tickborne illness, most likely tularemia.. Tul[place]mia serology is pending. The lab is sent to [facility] and has a four-day turnaround time it is expected to be run on Thursday. Acute on Chronic renal failure, creatinine today is 3.1, most likely secondary to dehydration and possible interstitial nephritis due to infection A fib currently stable on medication-Dr. Leong is following Pacemaker in place Chronic HTN the patient has been hypotensive previously, Norvasc is on hold GERD OA chronic Acute elevated liver function tests suspect this is secondary to multisystem organ effects from infection Thrombocytopenia most likely secondary to infection plan : Reviewed medications with pharmacist- secondary to lethargy will decrease gabapentin to 100 mg by mouth daily we'll hold Aricept, and trazodone and reevaluate in the morning CT of head without contrast results were discussed with his granddaughter no acute changes OT and PT did see the patient today. He may benefit from rehabilitation after his acute stay. Continue Doxycycline IV fluids and status reviewed with cardiology. Given his mild acidosis will start D5W with 2 amps of sodium acetate (there is a nationwide shortage of sodium bicarbonate), d/c lasix Check lab in am including CBC with manual differential, basic metabolic profile , and liver panel. The patient may benefit from more aggressive nephrology input if his creatinine does not turn around with current therapy 12/22/16 16:05
[2016-12-23] MEDS: DOCUSATE SODIUM 100 MG CAPSULE PO SCH (08:28)
[2016-12-23] MEDS: APIXABAN 5 MG TABLET PO SCH ×2 (08:28→20:16)
[2016-12-23] MEDS: GABAPENTIN 100 MG CAPSULE PO SCH (08:29)
[2016-12-23] MEDS: AMLODIPINE 5 MG TABLET PO SCH (08:29)
[2016-12-23] MEDS: MULTI-VITAMIN PLAIN TABLET PO SCH (08:30)
[2016-12-23] MEDS: ALLOPURINOL 100 MG TABLET PO SCH (08:30)
[2016-12-23] MEDS: SALINE FLUSH 10ml SYRINGE IVF PRN (08:30)
--- NOTE | 2016-12-23 13:33 | Cardiology Progress Note ---
Subjective Principal diagnosis: Atrial Fibrillation <Ophelia Carvalho 12/23/16 13:35> Interval history: CC: AFIB Pt laying in bed. States he has no concerns. Has no O2 on this AM and says his breathing con'ts to improve. Denies any CP, palpitations, N/V and/or diaphoresis. <Ophelia Carvalho 12/24/16 21:46> Exam Vital signs: Temperature 96.3 F L 12/25/16 07:43 Pulse Rate 74 12/25/16 07:43 Respiratory Rate 18 12/25/16 07:43 Blood Pressure 152/69 H 12/25/16 07:43 Pulse Oximetry 94 12/25/16 09:55 Oxygen Delivery Method Room Air Oxygen Flow Rate 76 <Ponce Wellington - 12/25/16 12:51> Temperature 97.2 F 12/23/16 12:12 Pulse Rate 75 12/23/16 12:12 Respiratory Rate 16 12/23/16 12:12 Blood Pressure 133/66 12/23/16 12:12 Pulse Oximetry 92 12/23/16 12:12 Oxygen Delivery Method Room Air Oxygen Flow Rate 92 12/23/16 04:46 12/23/16 04:46 <Ophelia Carvalho 12/23/16 13:35> - Constitutional no acute distress, obese, cooperative <Ophelia Carvalho 12/23/16 13:35> - Routine HEENT Exam Head: Present: normocephalic <Ophelia Carvalho 12/23/16 13:35> Eye: Present: EOMI <Ophelia Carvalho 12/23/16 13:35> ENT: Present: mucous membranes moist <Ophelia Carvalho 12/23/16 13:35> - Routine Neck Exam Absent: JVD, carotid bruit <Ophelia Carvalho 12/23/16 13:35> - Routine Respiratory Exam Present: decreased breath sounds. Absent: dyspnea, respiratory distress < Ophelia Carvalho 12/23/16 13:35> - Routine Cardiovascular Exam Present: irregular rhythm. Absent: JVD <Ophelia Carvalho 12/24/16 21:53> - Routine Abdominal Exam Present: normoactive bowel sounds, distended <JohnonOphelia 12/24/16 21:46> - Routine Extremities Exam Present: edema, pulses intact <Ophelia Carvalho 12/24/16 21:46> - Routine Skin Exam Present: intact, dry, warm. Absent: erythema, wounds, rash <Ophelia Carvalho 12/24/16 21:46> - Routine Neurological Exam Present: alert, altered mental status <Ophelia Carvalho 12/24/16 21:46> - Routine Psychiatric Exam Present: normal affect, cooperative <Ophelia Carvalho 12/24/16 21:46> - Urinary Catheter Management Urethral Cath placed during this visit: no <Ponce Wellington 12/25/16 12:43> yes <Ophelia Carvalho 12/24/16 22:05> Urethral indwelling: Yes <Ophelia Carvalho 12/23/16 13:35> Reason for continuing: Acute Urinary Retention <Ophelia Carvalho 12/24/16 21:46 > Insertion date: 12/21/16 <Ophelia Carvalho 12/23/16 13:35> Insertion time: 11:25 <Ophelia Carvalho 12/23/16 13:35> Progress Note-A&P (1) Atrial fibrillation Status: Chronic Current Visit: Yes (2) Pacemaker Status: Chronic Current Visit: Yes (3) HTN (hypertension) Status: Chronic Current Visit: Yes (4) Waaxw-nf-[id number] renal failure Problem details: Stage III CKD. Status: Acute Current Visit: Yes <Ponce Wellington 12/25/16 12:51> (1) Atrial fibrillation Status: Chronic Assessment and plan: Continue home anticoagulation with Eliques 2.5mg bid. Con't to monitor tele, rate control tolerable given pt's recent hypotension which is improving. BNP 4130.Repeat BNP tomorrow. Current Visit: Yes (2) Igwfz-[id number]-vdtfhzz renal failure Problem details: Stage III CKD. Status: Acute Assessment and plan: Operations Chief. slightly elevated at 3.2, LFT's gradually elevated again. Christianson still in place with goo UOP. No IVF/diuretics at this time. Continue to monitor. Current Visit: Yes (3) HTN (hypertension) Status: Chronic Assessment and plan: Norvasc 5mg recently restarted. BP tolerating. Con't to monitor. Current Visit: Yes (4) Pacemaker Status: Chronic Current Visit: Yes <Ophelia Carvalho 12/24/16 22:04> - Time Spent With Patient Total time spent is greater than 50% in coordination of care (as documented) at patient's floor/unit and/or counseling patient: <Ponce Wellington 12/25/16 12:51> Total time spent is greater than 50% in coordination of care (as documented) at patient's floor/unit and/or counseling patient: <Ophelia Carvalho 12/23/16 13:35> 25 - 35 minutes <Ophelia Carvalho 12/24/16 22:05> - Attestation Attestation Narrative: Recommendation After examining the patient I agree with the above assessment. I am involved in the formulation of the patient's plan of care. <Ponce Wellington 12/25/16 12:43> Sepsis Assessment - Evaluation Sepsis screening result: No Definite Risk <Ophelia Carvalho 12/23/16 13:35> Hospital Course Summary Disclaimer: The visit summary below is not to be considered part of the above Progress Note. <Ponce Wellington 12/25/16 12:51> The visit summary below is not to be considered part of the above Progress Note. <Ophelia Carvalho 12/23/16 13:35> Hospital Course: 12/19/16 14:21 Assessment: Fever most likely due to a tickborne illness. Chronic kidney disease now with a rapid increase in creatinine most likely secondary to dehydration and possible interstitial nephritis due to infection A fib currently stable on medication chronic HTN the patient has been hypotensive during the evening fluid was increased, Norvasc is on hold GERD OA chronic Plan: Continue oral doxycycline We will continue IV fluids which were started last night response to his low blood pressure and increased creatinine. His increased creatinine may be secondary to the underlying infection as that may also explain his hematuria which may represent interstitial nephritis. It should be noted the patient has CT scan done in and December 16, at that time the kidneys showed normal enhancement without masses no radiodense stones or hydronephrosis. Continue OT and PT secondary to weakness, patient's family wonders if he might need physical therapy as an outpatient as well. We will DC ceftriaxone Will ask Dr. VERNON need to see the patient at the family's request Will recheck a BMP this afternoon to monitor his creatinine 12/20/16 10:52 *Acute febrile illness/Suspected Tick-Borne illness- Continue doxycycline. Serum titers pending. Pt. is afebrile overnoc. Ceftriaxone DC'd. Mild pancytopenia noted- likely due to sepsis. If tick-borne titers negative, consider WNV testing. He does not c/o headache or neck/back pain, so less likely. *AKF/CKD- Suspect due to hypotension with known CKD. baseline unclear (~1.8?) Decrease Norvasc 5mg, hold if SBP less than 130mmHg. Restart IVF at 100ml/hr. Check bladder scan to be sure there is no urinary retention. May need to allow mild passive hypertension for renal perfusion. Assess for rhabdo given increasing LFTs as well- higher risk for Rhabdo given Norvasc and Zocor tx- stop Zocor. Repeat labs this afternoon for stability with IVF restarted. *HFpEF/AFib/Chronic anticoagulation Need to resume IVF. No diuretics on board. He does not appear fluid overloaded. CXR is improved. May need to provide gentle diuretics with ongoing IVF given MICHAELLE- will monitor fluid status. Prelim echo pending. Dr. Wellington following. Zoquis in renal dosing. *DVT px- Eliquis. We can DC the SCD's. Repeat labs in AM. Continue telemetry. 12/21/16 14:27 *Acute febrile illness/Possible tick borne illness So far, serologies have been negative. Continue doxycycline for now. He is afebrile. LFTs climbing slowly, continues to demonstrate elevated CPK. Will order GB sono to R/O occult cholecystitis. *Acute Renal Failure/Elevated CPK- BP is normalizing. Continue IVF- will add low dose Lasix Q 8 hours to flush kidneys. Add some KCL to IVF to replace with diuresis. Repeat labs in AM. Christianson placed due to concern for retention. UOP remains marginal. *HTN- Doing well on lower dose of amlodipine. *Chronic pain- Gabapentin. *Hip pain/leg pain- Likely OA. Monitor. If persists, or worsens, could consider imaging. Fall is not documented. *Atrial Fib- Continue rate control/Eliquis. Granddaughter relays family's concerns about weakness and mental status. She notes that he doesn't have any focal findings-but seems to be more lethargic, has difficulty raising a glass to his lips, but no observed aphasia, difficulty with speech or weakness in his arms or legs. The family is concerned because he had similar symptoms years ago when he had a mini stroke. On physical exam: Skin:He seems to have a faint pink macular papular rash on his upper inner arms but it is not generalized Neuro- awakens easily, follows commands, minimal left facial droop, no tongue deviation or fasciculations, moves all extremities equally Assessment as above- Will check CT of head without contrast Unable to find OT/PT eval on chart, will reconsult Continue Doxycycline Check lab in am 12/22/16 15:36 Assessment: Resolved Fever-infection most likely due to a tickborne illness, most likely tularemia.. Tularemia serology is pending. The lab is sent to [facility] and has a four-day turnaround time it is expected to be run on Thursday. Acute on Chronic renal failure, creatinine today is 3.1, most likely secondary to dehydration and possible interstitial nephritis due to infection A fib currently stable on medication-Dr. Leong is following Pacemaker in place Chronic HTN the patient has been hypotensive previously, Norvasc is on hold GERD OA chronic Acute elevated liver function tests suspect this is secondary to multisystem organ effects from infection Thrombocytopenia most likely secondary to infection plan : Reviewed medications with pharmacist- secondary to lethargy will decrease gabapentin to 100 mg by mouth daily we'll hold Aricept, and trazodone and reevaluate in the morning CT of head without contrast results were discussed with his granddaughter no acute changes OT and PT did see the patient today. He may benefit from rehabilitation after his acute stay. Continue Doxycycline IV fluids and status reviewed with cardiology. Given his mild acidosis will start D5W with 2 amps of sodium acetate (there is a nationwide shortage of sodium bicarbonate), d/c lasix Check lab in am including CBC with manual differential, basic metabolic profile , and liver panel. The patient may benefit from more aggressive nephrology input if his creatinine does not turn around with current therapy 12/22/16 16:05 <Ophelia Carvalho 12/24/16 21:19>
[2016-12-23] MEDS: HYDROCODONE/APAP 5mg/325mg TABLET PO PRN ×2 (14:36→20:17)
--- NOTE | 2016-12-23 16:51 | Progress Note ---
Subjective: Mr. Emerson was seen with daughter at bedside. He complains of increased low back pain today without radicular symptoms. He reports the pain comes and goes. Appetite is variable has had some nausea in addition to constipation. He denied dyspnea, cough, chest pain, palpitations, or recurrent fevers. Daughter reports no rash. Objective Vital signs: Temperature 98.1 F 12/23/16 15:51 Pulse Rate 62 12/23/16 15:51 Respiratory Rate 20 12/23/16 15:51 Blood Pressure 125/67 12/23/16 15:51 Pulse Oximetry 96 12/23/16 15:51 Oxygen Delivery Method Room Air Oxygen Flow Rate 92 EXAM General-NAD, hard of hearing, alert HEENT-conjunctiva clear, sclera anicteric, EOMI Lungs-respirations nonlabored, good airflow, breath sounds clear Cardiac-regular rhythm, S1-S2, distant heart tones Abd-soft, nontender, obese, bowel sounds present Ext-without edema Neuro-proximal lower extremities weak, sensation intact 4 extremities Psych-calm, cooperative - Weight: 108.8 kg Results - Labs CBC & Chem 7: 12/23/16 04:46 12/23/16 04:46 Labs: Total bilirubin 2.7-largely conjugated, AST 256, ALT 149, alkaline phosphatase 198. Tularemia antibody pending Assessment and Plan (1) Febrile illness, acute Current visit: Yes Status: Acute (2) Atrial fibrillation Current visit: Yes Status: Chronic (3) HTN (hypertension) Current visit: Yes Status: Chronic (4) [id number] renal failure Problem details: Stage III CKD. Current visit: Yes Status: Acute (5) Chronic anticoagulation Current visit: Yes Status: Chronic (6) Tick bite Current visit: Yes Status: Acute DVT Prophylaxis: SCD's, Eliquis Resuscitation Status: Full Code Assessment and Plan: Assessment: Fever of unknown origin, resolved- most likely due to a tickborne illness, probably tularemia, serology pending. Acute on Chronic renal failure-stage III A fib currently stable on medication-Dr. Leong is following Pacemaker Essential HTN GERD OA/back pain Acute elevated liver function tests suspect this is secondary to multisystem organ effects from infection Thrombocytopenia - likely secondary to infection Constipation Lethargy-Aricept, trazodone on hold, gabapentin dose decreased History CVA left cerebellum/occipital lobes Plan: Continue Doxycycline, tularemia serology pending. IV fluids on hold, Lasix on hold; oral intake limited. Reassess renal function in a.m. and assess fractional excretion of sodium to better gauge volume status. Recheck BNP and chest x-ray in am. Senokot/MiraLAX initiated for constipation. Continue PT for strengthening. Fluid status discussed with Dr. Wellington, CT head reviewed by myself, DrLuz Elena provide supplemental history. Sepsis Assessment - Evaluation Sepsis screening result: No Definite Risk Hospital Course Summary Disclaimer: The visit summary below is not to be considered part of the above Progress Note. Hospital Course: 12/19/16 14:21 Assessment: Fever most likely due to a tickborne illness. Chronic kidney disease now with a rapid increase in creatinine most likely secondary to dehydration and possible interstitial nephritis due to infection A fib currently stable on medication chronic HTN the patient has been hypotensive during the evening fluid was increased, Norvasc is on hold GERD OA chronic Plan: Continue oral doxycycline We will continue IV fluids which were started last night response to his low blood pressure and increased creatinine. His increased creatinine may be secondary to the underlying infection as that may also explain his hematuria which may represent interstitial nephritis. It should be noted the patient has CT scan done in and December 16, at that time the kidneys showed normal enhancement without masses no radiodense stones or hydronephrosis. Continue OT and PT secondary to weakness, patient's family wonders if he might need physical therapy as an outpatient as well. We will DC ceftriaxone Will ask Dr. VERNON need to see the patient at the family's request Will recheck a BMP this afternoon to monitor his creatinine 12/20/16 10:52 *Acute febrile illness/Suspected Tick-Borne illness- Continue doxycycline. Serum titers pending. Pt. is afebrile overnoc. Ceftriaxone DC'd. Mild pancytopenia noted- likely due to sepsis. If tick-borne titers negative, consider WNV testing. He does not c/o headache or neck/back pain, so less likely. *AKF/CKD- Suspect due to hypotension with known CKD. baseline unclear (~1.8?) Decrease Norvasc 5mg, hold if SBP less than 130mmHg. Restart IVF at 100ml/hr. Check bladder scan to be sure there is no urinary retention. May need to allow mild passive hypertension for renal perfusion. Assess for rhabdo given increasing LFTs as well- higher risk for Rhabdo given Norvasc and Zocor tx- stop Zocor. Repeat labs this afternoon for stability with IVF restarted. *HFpEF/AFib/Chronic anticoagulation Need to resume IVF. No diuretics on board. He does not appear fluid overloaded. CXR is improved. May need to provide gentle diuretics with ongoing IVF given MICHAELLE- will monitor fluid status. Prelim echo pending. Dr. Wellington following. Eliquis in renal dosing. *DVT px- Eliquis. We can DC the SCD's. Repeat labs in AM. Continue telemetry. 12/21/16 14:27 *Acute febrile illness/Possible tick borne illness So far, serologies have been negative. Continue doxycycline for now. He is afebrile. LFTs climbing slowly, continues to demonstrate elevated CPK. Will order GB sono to R/O occult cholecystitis. *Acute Renal Failure/Elevated CPK- BP is normalizing. Continue IVF- will add low dose Lasix Q 8 hours to flush kidneys. Add some KCL to IVF to replace with diuresis. Repeat labs in AM. Christianson placed due to concern for retention. UOP remains marginal. *HTN- Doing well on lower dose of amlodipine. *Chronic pain- Gabapentin. *Hip pain/leg pain- Likely OA. Monitor. If persists, or worsens, could consider imaging. Fall is not documented. *Atrial Fib- Continue rate control/Eliquis. Granddaughter relays family's concerns about weakness and mental status. She notes that he doesn't have any focal findings-but seems to be more lethargic, has difficulty raising a glass to his lips, but no observed aphasia, difficulty with speech or weakness in his arms or legs. The family is concerned because he had similar symptoms years ago when he had a mini stroke. On physical exam: Skin:He seems to have a faint pink macular papular rash on his upper inner arms but it is not generalized Neuro- awakens easily, follows commands, minimal left facial droop, no tongue deviation or fasciculations, moves all extremities equally Assessment as above- Will check CT of head without contrast Unable to find OT/PT eval on chart, will reconsult Continue Doxycycline Check lab in am 12/22/16 15:36 Assessment: Resolved Fever-infection most likely due to a tickborne illness, most likely tularemia.. Tularemia serology is pending. The lab is sent to [facility] and has a four-day turnaround time it is expected to be run on Thursday. Acute on Chronic renal failure, creatinine today is 3.1, most likely secondary to dehydration and possible interstitial nephritis due to infection A fib currently stable on medication-Dr. Leong is following Pacemaker in place Chronic HTN the patient has been hypotensive previously, Norvasc is on hold GERD OA chronic Acute elevated liver function tests suspect this is secondary to multisystem organ effects from infection Thrombocytopenia most likely secondary to infection plan : Reviewed medications with pharmacist- secondary to lethargy will decrease gabapentin to 100 mg by mouth daily we'll hold Aricept, and trazodone and reevaluate in the morning CT of head without contrast results were discussed with his granddaughter no acute changes OT and PT did see the patient today. He may benefit from rehabilitation after his acute stay. Continue Doxycycline IV fluids and status reviewed with cardiology. Given his mild acidosis will start D5W with 2 amps of sodium acetate (there is a nationwide shortage of sodium bicarbonate), d/c lasix Check lab in am including CBC with manual differential, basic metabolic profile , and liver panel. The patient may benefit from more aggressive nephrology input if his creatinine does not turn around with current therapy 12/22/16 16:05 12/23/16 17:11-Allie Continue Doxycycline, tularemia serology pending. IV fluids on hold, Lasix on hold; oral intake limited. Reassess renal function in a.m. and assess fractional excretion of sodium to better gauge volume status. Recheck BNP and chest x-ray in am. Senokot/MiraLAX initiated for constipation. Continue PT for strengthening.
[2016-12-23] MEDS: SENNA + DOCUSATE TABLET PO SCH (20:16)
[2016-12-24] MEDS: SENNA + DOCUSATE TABLET PO SCH ×2 (09:02→21:52)
[2016-12-24] MEDS: ALLOPURINOL 100 MG TABLET PO SCH (09:02)
[2016-12-24] MEDS: AMLODIPINE 5 MG TABLET PO SCH (09:03)
[2016-12-24] MEDS: GABAPENTIN 100 MG CAPSULE PO SCH (09:03)
[2016-12-24] MEDS: APIXABAN 5 MG TABLET PO SCH ×2 (09:03→21:52)
[2016-12-24] MEDS: POLYETHYL GLYCOL 3350 17gm PACKET PO SCH (09:03)
[2016-12-24] MEDS: MULTI-VITAMIN PLAIN TABLET PO SCH (09:03)
[2016-12-24] MEDS: SALINE FLUSH 10ml SYRINGE IVF PRN (09:04)
--- NOTE | 2016-12-24 09:04 | XRay Report ---
INDICATION: CHF PROCEDURE: CHEST 2-VIEWS UPRIGHT (PA & LAT) Encounter: Initial COMPARISON: December 19, 2016 FINDINGS: Left pacemaker. Pulmonary vascular congestion appears stable with increased interstitial markings. No lobar consolidation. No pneumothorax. Small pleural effusions are minimally increased. Cardiac silhouette remains enlarged. Mediastinal contours are stable. Impression: Minimally increased pleural fluid otherwise stable chest. .
[2016-12-24] MEDS: HYDROCODONE/APAP 5mg/325mg TABLET PO PRN (11:09)
--- NOTE | 2016-12-24 19:45 | Progress Note ---
Subjective: Mr. Emerson was seen with his daughter at bedside. He reported having a fairly good day today and there was able to ambulate further today than he has in a number of days. He denied dyspnea or cough, has had no fever or chills, no nausea, and back pain is not as bad today as it has been. He received laxatives earlier but has not yet had a bowel movement. Objective Vital signs: Temperature 98.5 F 12/24/16 16:04 Pulse Rate 84 12/24/16 16:04 Respiratory Rate 18 12/24/16 16:04 Blood Pressure 143/67 H 12/24/16 16:04 Pulse Oximetry 95 12/24/16 16:17 Oxygen Delivery Method Room Air Oxygen Flow Rate 2 I/O 1162/1350 weight up to 109.7 kg EXAM General-NAD, awake, hard of hearing HEENT-conjunctiva clear, sclera anicteric, neck supple and without adenopathy Lungs-respirations nonlabored with decreased airflow throughout, breath sounds clear Cardiac-slightly irregular rhythm, S1-S2 Abd-abdomen soft, nontender, obese, bowel sounds present Ext-+1 edema Neuro-sensation intact 4 extremities Psych-slow verbal responses, cooperative - Weight: 109.7 kg Results - Labs CBC & Chem 7: 12/23/16 04:46 12/24/16 04:45 Labs: BNP 7470 Urine sodium 31, urine creatinine 164.2, fractional excretion sodium 0.43% - Imaging and Cardiology Chest x-ray Status: image reviewed by me Additional comments: Chest x-ray with cardiomegaly and mild increased vascular markings by my review , no significant change from prior film 5 days ago. Small pleural effusion. Assessment and Plan (1) Febrile illness, acute Current visit: Yes Status: Acute (2) Atrial fibrillation Current visit: Yes Status: Chronic (3) HTN (hypertension) Current visit: Yes Status: Chronic (4) Kvskm-rz-barhkyu renal failure Problem details: Stage III CKD. Current visit: Yes Status: Acute (5) Chronic anticoagulation Current visit: Yes Status: Chronic (6) Tick bite Current visit: Yes Status: Acute Assessment and Plan: Assessment: Fever of unknown origin, resolved- most likely due to a tickborne illness, probably tularemia, serology pending. Acute on Chronic renal failure-stage III A fib currently stable on medication-Dr. Leong is following Pacemaker Essential HTN GERD OA/back pain Acute elevated liver function tests suspect this is secondary to multisystem organ effects from infection Thrombocytopenia - likely secondary to infection Constipation Lethargy-Aricept, trazodone on hold, gabapentin dose decreased History CVA left cerebellum/occipital lobes Plan: Continue Doxycycline, tularemia serology ,1:20-consider repeating in 2-4 weeks. IV fluids on hold, Lasix on hold; oral intake limited. FeNa 0.43% but BNP climbing, chest x-ray with minimal change, weight up. Discussed fluid status/diuretics with Dr. Wellington-will continue to hold but anticipate need to resume in the next 1-2 days. Single episode of desaturation at 88% described overnight, will check nocturnal oximetry tonight. Continue bowel regimen and physical therapy. Bladder training initiated with goal of discontinuing Christianson tomorrow. Sepsis Assessment - Evaluation Sepsis screening result: No Definite Risk Hospital Course Summary Disclaimer: The visit summary below is not to be considered part of the above Progress Note. Hospital Course: 12/19/16 14:21 Assessment: Fever most likely due to a tickborne illness. Chronic kidney disease now with a rapid increase in creatinine most likely secondary to dehydration and possible interstitial nephritis due to infection A fib currently stable on medication chronic HTN the patient has been hypotensive during the evening fluid was increased, Norvasc is on hold GERD OA chronic Plan: Continue oral doxycycline We will continue IV fluids which were started last night response to his low blood pressure and increased creatinine. His increased creatinine may be secondary to the underlying infection as that may also explain his hematuria which may represent interstitial nephritis. It should be noted the patient has CT scan done in [place] and December 16, at that time the kidneys showed normal enhancement without masses no radiodense stones or hydronephrosis. Continue OT and PT secondary to weakness, patient's family wonders if he might need physical therapy as an outpatient as well. We will DC ceftriaxone Will ask Dr. VERNON need to see the patient at the family's request Will recheck a BMP this afternoon to monitor his creatinine 12/20/16 10:52 *Acute febrile illness/Suspected Tick-Borne illness- Continue doxycycline. Serum titers pending. Pt. is afebrile overnoc. Ceftriaxone DC'd. Mild pancytopenia noted- likely due to sepsis. If tick-borne titers negative, consider WNV testing. He does not c/o headache or neck/back pain, so less likely. *AKF/CKD- Suspect due to hypotension with known CKD. baseline unclear (~1.8?) Decrease Norvasc 5mg, hold if SBP less than 130mmHg. Restart IVF at 100ml/hr. Check bladder scan to be sure there is no urinary retention. May need to allow mild passive hypertension for renal perfusion. Assess for rhabdo given increasing LFTs as well- higher risk for Rhabdo given Norvasc and Zocor tx- stop Zocor. Repeat labs this afternoon for stability with IVF restarted. *HFpEF/AFib/Chronic anticoagulation Need to resume IVF. No diuretics on board. He does not appear fluid overloaded. CXR is improved. May need to provide gentle diuretics with ongoing IVF given MICHAELLE- will monitor fluid status. Prelim echo pending. Dr. Wellington following. Eliquis in renal dosing. *DVT px- Eliquis. We can DC the SCD's. Repeat labs in AM. Continue telemetry. 12/21/16 14:27 *Acute febrile illness/Possible tick borne illness So far, serologies have been negative. Continue doxycycline for now. He is afebrile. LFTs climbing slowly, continues to demonstrate elevated CPK. Will order GB sono to R/O occult cholecystitis. *Acute Renal Failure/Elevated CPK- BP is normalizing. Continue IVF- will add low dose Lasix Q 8 hours to flush kidneys. Add some KCL to IVF to replace with diuresis. Repeat labs in AM. Christianson placed due to concern for retention. UOP remains marginal. *HTN- Doing well on lower dose of amlodipine. *Chronic pain- Gabapentin. *Hip pain/leg pain- Likely OA. Monitor. If persists, or worsens, could consider imaging. Fall is not documented. *Atrial Fib- Continue rate control/Eliquis. Granddaughter relays family's concerns about weakness and mental status. She notes that he doesn't have any focal findings-but seems to be more lethargic, has difficulty raising a glass to his lips, but no observed aphasia, difficulty with speech or weakness in his arms or legs. The family is concerned because he had similar symptoms years ago when he had a mini stroke. On physical exam: Skin:He seems to have a faint pink macular papular rash on his upper inner arms but it is not generalized Neuro- awakens easily, follows commands, minimal left facial droop, no tongue deviation or fasciculations, moves all extremities equally Assessment as above- Will check CT of head without contrast Unable to find OT/PT eval on chart, will reconsult Continue Doxycycline Check lab in am 12/22/16 15:36 Assessment: Resolved Fever-infection most likely due to a tickborne illness, most likely tularemia.. Tularemia serology is pending. The lab is sent to [facility] and has a four-day turnaround time it is expected to be run on Thursday. Acute on Chronic renal failure, creatinine today is 3.1, most likely secondary to dehydration and possible interstitial nephritis due to infection A fib currently stable on medication-Dr. Leong is following Pacemaker in place Chronic HTN the patient has been hypotensive previously, Norvasc is on hold GERD OA chronic Acute elevated liver function tests suspect this is secondary to multisystem organ effects from infection Thrombocytopenia most likely secondary to infection plan : Reviewed medications with pharmacist- secondary to lethargy will decrease gabapentin to 100 mg by mouth daily we'll hold Aricept, and trazodone and reevaluate in the morning CT of head without contrast results were discussed with his granddaughter no acute changes OT and PT did see the patient today. He may benefit from rehabilitation after his acute stay. Continue Doxycycline IV fluids and status reviewed with cardiology. Given his mild acidosis will start D5W with 2 amps of sodium acetate (there is a nationwide shortage of sodium bicarbonate), d/c lasix Check lab in am including CBC with manual differential, basic metabolic profile , and liver panel. The patient may benefit from more aggressive nephrology input if his creatinine does not turn around with current therapy 12/23/16 17:11-Allie Continue Doxycycline, tularemia serology pending. IV fluids on hold, Lasix on hold; oral intake limited. Reassess renal function in a.m. and assess fractional excretion of sodium to better gauge volume status. Recheck BNP and chest x-ray in am. Senokot/MiraLAX initiated for constipation. Continue PT for strengthening. 12/24/16 19:52 Continue Doxycycline, tularemia serology ,1:20-consider repeating in 2-4 weeks. IV fluids on hold, Lasix on hold; oral intake limited. FeNa 0.43% but BNP climbing, chest x-ray with minimal change, weight up. Discussed diuretics with Dr. Wellington-will continue to hold but anticipate need to resume in the next 1-2 days. Single episode of desaturation at 88% described overnight, will check nocturnal oximetry tonight. Continue bowel regimen and physical therapy. Bladder training initiated with goal of discontinuing Christianson tomorrow.
[2016-12-24] MEDS ORDERED: FLEET PHOSPHO - SODA ENEMA 133ml PR ONE (22:00)
--- NOTE | 2016-12-24 22:07 | Cardiology Progress Note ---
Subjective Principal diagnosis: Atrial Fibrillation <Ophelia Carvalho 12/24/16 22:07> Interval history: CC: AFIB Patient OOB in chair today. States he is feeling well and is visibly improved today. Still has kirk d/t urinary retention. Still c/o constipation and that daily interventions have been in place. States he is passing gas. Denies any N/ V. Also con'ts to deny any CP, palpitations, and/or diaphoresis. <Ophelia Carvalho 12/25/16 07:15> Exam Vital signs: Temperature 96.3 F L 12/25/16 07:43 Pulse Rate 74 12/25/16 07:43 Respiratory Rate 18 12/25/16 07:43 Blood Pressure 152/69 H 12/25/16 07:43 Pulse Oximetry 94 12/25/16 09:55 Oxygen Delivery Method Room Air Oxygen Flow Rate 76 <CandaceDk masseyin - 12/25/16 12:52> Temperature 96.4 F L 12/24/16 20:47 Pulse Rate 83 12/24/16 20:47 Respiratory Rate 16 12/24/16 21:32 Blood Pressure 149/67 H 12/24/16 20:47 Pulse Oximetry 92 12/24/16 21:32 Oxygen Delivery Method Room Air Oxygen Flow Rate 76 12/23/16 04:46 12/24/16 04:45 Date of Exam: 12/24/16 Ordering Provider: Sharifa Kelley MD Type of Exam(s): XR chest 2V Reason for Exam(s): CHF INDICATION: CHF PROCEDURE: CHEST 2-VIEWS UPRIGHT (PA & LAT) Encounter: Initial COMPARISON: December 19, 2016 FINDINGS: Left pacemaker. Pulmonary vascular congestion appears stable with increased interstitial markings. No lobar consolidation. No pneumothorax. Small pleural effusions are minimally increased. Cardiac silhouette remains enlarged. Mediastinal contours are stable. Impression: Minimally increased pleural fluid otherwise stable chest. . <Ophelia Carvalho 12/25/16 07:07> - Constitutional no acute distress, obese, cooperative <Ophelia Carvalho 12/25/16 07:10> - Routine HEENT Exam Head: Present: normocephalic <Ophelia Carvalho 12/25/16 07:10> Eye: Present: EOMI <Ecton,Ophelia 12/25/16 07:10> ENT: Present: mucous membranes moist <Ecton,Ophelia 12/25/16 07:10> - Routine Neck Exam Absent: JVD, carotid bruit, lymphadenopathy <Ecton,Ophelia 12/25/16 07:10> - Routine Respiratory Exam Present: decreased breath sounds. Absent: dyspnea, respiratory distress, wheezes <Ecton,Ophelia 12/25/16 07:10> - Routine Cardiovascular Exam Present: no murmur, irregular rhythm. Absent: gallop, rubs, JVD <Ecton,Ophelia 12/25/16 07:10> - Routine Extremities Exam Present: edema, pulses intact <Ecton,Ophelia 12/25/16 07:18> Comments: +1 edema BLE <Ecton,Ophelia 12/25/16 07:22> - Routine Skin Exam Present: intact, dry, warm. Absent: erythema, rash <Ecton,Ophelia 12/25/16 07:18> - Routine Neurological Exam Present: alert, moving all extremities <EctonOphelia 12/25/16 07:22> [place] <Ecton,Ophelia 12/25/16 07:18> - Routine Psychiatric Exam Present: cooperative <Ecton,Ophelia 12/25/16 07:22> - Urinary Catheter Management Urethral Cath placed during this visit: no <CandacebrysonPonce - 12/25/16 12:44> yes <JohnonOphelia 12/25/16 07:33> Urethral indwelling: Yes <JohnonOphelia 12/24/16 22:07> Reason for continuing: Acute Urinary Retention <EctonOphelia 12/25/16 07:22 > Insertion date: 12/21/16 <Ecton,Ophelia 12/24/16 22:07> Insertion time: 11:25 <Ecton,Ophelia 12/24/16 22:07> Progress Note-A&P (1) Atrial fibrillation Status: Chronic Current Visit: Yes (2) Pacemaker Status: Chronic Current Visit: Yes (3) HTN (hypertension) Status: Chronic Current Visit: Yes (4) Cekpq-[id number] renal failure Problem details: Stage III CKD. Status: Acute Current Visit: Yes <CandacebrysonLeonidasPonce 12/25/16 12:52> (1) Atrial fibrillation Status: Chronic Assessment and plan: Continue home anticoagulation with Eliques 2.5mg bid. Con't to monitor tele, rate control tolerable given pt's recent hypotension which is resolved. BNP 7470 today, no diuretics at this time d/t CKD. Current Visit: Yes (2) Badmu-cz-eqyrfsu renal failure Problem details: Stage III CKD. 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 CXR shows minimally increased plueral fluid, ? interstitial lung disease vs HF. Wts slightly up, +1 edema BLE. Pt remains on RA with slightly diminished lung sounds. Good UOP with kirk. Discussed starting bumex with Dr. 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 Will repeat BNP and CMP in AM. Current Visit: Yes (3) HTN (hypertension) Status: Chronic Assessment and plan: Norvasc 5mg recently restarted. BP gradually trending up at times, no pattern at this time. May need to increase Norvasc. Con't to monitor closely. Current Visit: Yes (4) Pacemaker Status: Chronic Current Visit: Yes <Ophelia Carvalho 12/25/16 07:23> - Time Spent With Patient Total time spent is greater than 50% in coordination of care (as documented) at patient's floor/unit and/or counseling patient: <Ponce Wellington 12/25/16 12:52> Total time spent is greater than 50% in coordination of care (as documented) at patient's floor/unit and/or counseling patient: <Ophelia Carvalho 12/24/16 22:07> 25 - 35 minutes <Ophelia Carvalho 12/25/16 07:33> - Attestation Attestation Narrative: Recommendation After examining the patient I agree with the above assessment. I am involved in the formulation of the patient's plan of care. <Ponce Wellington 12/25/16 12:44> Sepsis Assessment - Evaluation Sepsis screening result: No Definite Risk <Ophelia Carvalho - 07/26/17 22:07> Hospital Course Summary Disclaimer: The visit summary below is not to be considered part of the above Progress Note. <Ponce Wellington - 12/25/16 12:52> The visit summary below is not to be considered part of the above Progress Note. <Ophelia Carvalho - 12/24/16 22:07> Hospital Course: 12/19/16 14:21 Assessment: Fever most likely due to a tickborne illness. Chronic kidney disease now with a rapid increase in creatinine most likely secondary to dehydration and possible interstitial nephritis due to infection A fib currently stable on medication chronic HTN the patient has been hypotensive during the evening fluid was increased, Norvasc is on hold GERD OA chronic Plan: Continue oral doxycycline We will continue IV fluids which were started last night response to his low blood pressure and increased creatinine. His increased creatinine may be secondary to the underlying infection as that may also explain his hematuria which may represent interstitial nephritis. It should be noted the patient has CT scan done in [place] and December 16, at that time the kidneys showed normal enhancement without masses no radiodense stones or hydronephrosis. Continue OT and PT secondary to weakness, patient's family wonders if he might need physical therapy as an outpatient as well. We will DC ceftriaxone Will ask Dr. VERNON need to see the patient at the family's request Will recheck a BMP this afternoon to monitor his creatinine 12/20/16 10:52 *Acute febrile illness/Suspected Tick-Borne illness- Continue doxycycline. Serum titers pending. Pt. is afebrile overnoc. Ceftriaxone DC'd. Mild pancytopenia noted- likely due to sepsis. If tick-borne titers negative, consider WNV testing. He does not c/o headache or neck/back pain, so less likely. *AKF/CKD- Suspect due to hypotension with known CKD. baseline unclear (~1.8?) Decrease Norvasc 5mg, hold if SBP less than 130mmHg. Restart IVF at 100ml/hr. Check bladder scan to be sure there is no urinary retention. May need to allow mild passive hypertension for renal perfusion. Assess for rhabdo given increasing LFTs as well- higher risk for Rhabdo given Norvasc and Zocor tx- stop Zocor. Repeat labs this afternoon for stability with IVF restarted. *HFpEF/AFib/Chronic anticoagulation Need to resume IVF. No diuretics on board. He does not appear fluid overloaded. CXR is improved. May need to provide gentle diuretics with ongoing IVF given MICHAELLE- will monitor fluid status. Prelim echo pending. Dr. Wellington following. Eliquis in renal dosing. *DVT px- Eliquis. We can DC the SCD's. Repeat labs in AM. Continue telemetry. 12/21/16 14:27 *Acute febrile illness/Possible tick borne illness So far, serologies have been negative. Continue doxycycline for now. He is afebrile. LFTs climbing slowly, continues to demonstrate elevated CPK. Will order GB sono to R/O occult cholecystitis. *Acute Renal Failure/Elevated CPK- BP is normalizing. Continue IVF- will add low dose Lasix Q 8 hours to flush kidneys. Add some KCL to IVF to replace with diuresis. Repeat labs in AM. Kirk placed due to concern for retention. UOP remains marginal. *HTN- Doing well on lower dose of amlodipine. *Chronic pain- Gabapentin. *Hip pain/leg pain- Likely OA. Monitor. If persists, or worsens, could consider imaging. Fall is not documented. *Atrial Fib- Continue rate control/Eliquis. Granddaughter relays family's concerns about weakness and mental status. She notes that he doesn't have any focal findings-but seems to be more lethargic, has difficulty raising a glass to his lips, but no observed aphasia, difficulty with speech or weakness in his arms or legs. The family is concerned because he had similar symptoms years ago when he had a mini stroke. On physical exam: Skin:He seems to have a faint pink macular papular rash on his upper inner arms but it is not generalized Neuro- awakens easily, follows commands, minimal left facial droop, no tongue deviation or fasciculations, moves all extremities equally Assessment as above- Will check CT of head without contrast Unable to find OT/PT evjuani on chart, will reconsult Continue Doxycycline Check lab in am 12/22/16 15:36 Assessment: Resolved Fever-infection most likely due to a tickborne illness, most likely tularemia.. Tularemia serology is pending. The lab is sent to [facility] and has a four-day turnaround time it is expected to be run on Thursday. Acute on Chronic renal failure, creatinine today is 3.1, most likely secondary to dehydration and possible interstitial nephritis due to infection A fib currently stable on medication-Dr. Leong is following Pacemaker in place Chronic HTN the patient has been hypotensive previously, Norvasc is on hold GERD OA chronic Acute elevated liver function tests suspect this is secondary to multisystem organ effects from infection Thrombocytopenia most likely secondary to infection plan : Reviewed medications with pharmacist- secondary to lethargy will decrease gabapentin to 100 mg by mouth daily we'll hold Aricept, and trazodone and reevaluate in the morning CT of head without contrast results were discussed with his granddaughter no acute changes OT and PT did see the patient today. He may benefit from rehabilitation after his acute stay. Continue Doxycycline IV fluids and status reviewed with cardiology. Given his mild acidosis will start D5W with 2 amps of sodium acetate (there is a nationwide shortage of sodium bicarbonate), d/c lasix Check lab in am including CBC with manual differential, basic metabolic profile , and liver panel. The patient may benefit from more aggressive nephrology input if his creatinine does not turn around with current therapy 12/22/16 16:05 <Ophelia Carvalho - 12/24/16 22:07>
[2016-12-25] MEDS: AMLODIPINE 5 MG TABLET PO SCH (09:04)
[2016-12-25] MEDS: SENNA + DOCUSATE TABLET PO SCH ×2 (09:05→21:43)
[2016-12-25] MEDS: GABAPENTIN 100 MG CAPSULE PO SCH (09:05)
[2016-12-25] MEDS: ALLOPURINOL 100 MG TABLET PO SCH (09:05)
[2016-12-25] MEDS: APIXABAN 5 MG TABLET PO SCH ×2 (09:05→21:41)
[2016-12-25] MEDS: MULTI-VITAMIN PLAIN TABLET PO SCH (09:05)
[2016-12-25] MEDS: POLYETHYL GLYCOL 3350 17gm PACKET PO SCH (09:51)
[2016-12-25] MEDS ORDERED: BUMETANIDE 2.5mg/10ml INJECTION IVP ONE (10:28)
[2016-12-25] MEDS ORDERED: LACTULOSE 20 GM/30 ML ORAL LIQUID PO ONE (10:32)
[2016-12-25] MEDS: SALINE FLUSH 10ml SYRINGE IVF PRN (11:15)
[2016-12-25] MEDS: HYDROCODONE/APAP 5mg/325mg TABLET PO PRN (11:23)
[2016-12-25] MEDS: ACETAMINOPHEN 325 MG TABLET PO PRN (17:11)
--- NOTE | 2016-12-25 17:42 | Progress Note ---
Subjective: Mr. Emerson was seen with family members at the bedside. The patient denies chest pain, palpitations, or difficulty breathing. He had a bowel movement earlier today. Family remembers note that he's much more confused since Aricept was stopped earlier in the hospital stay. Patient reports that he continues to have some mild tenderness in his back but that is much better than it was several days ago. Patient was generally vague and often ignored questions. He was unsure if he had ambulated with physical therapy earlier today but denied lightheadedness. Family would additionally like to discontinue Cameron due to worsening confusion. Objective Vital signs: Temperature 98.8 F 12/25/16 16:00 Pulse Rate 64 12/25/16 16:00 Respiratory Rate 20 12/25/16 16:00 Blood Pressure 146/84 H 12/25/16 16:00 Pulse Oximetry 97 12/25/16 16:00 Oxygen Delivery Method Room Air Oxygen Flow Rate 76 I/O 860/1851 weight down 2.7 kg from yesterday if accurate EXAM General-NAD, hard of hearing HEENT-conjunctiva clear, conjugate gaze, nonicteric Lungs-respirations nonlabored, good airflow, breath sounds clear Cardiac-rhythm slightly irregular, diminished heart tones Abd-obese, soft, nontender, bowel sounds present Ext-without edema Neuro-moving all extremities well, no tremor Psych-dull, confused, cooperates - Rhythm: Atrial Fibrillation with Normal Ventricular Rate (occasional PVCs- telemetry strips reviewed by myself) Weight: 107 kg Results - Labs CBC & Chem 7: 12/25/16 04:32 12/25/16 04:32 Labs: Bilirubin 1.8, AST 174, ALT 140, alkaline phosphatase 269 BNP 7910 Assessment and Plan (1) Febrile illness, acute Current visit: Yes Status: Acute (2) Atrial fibrillation Current visit: Yes Status: Chronic (3) HTN (hypertension) Current visit: Yes Status: Chronic (4) Seoqy-al-ikrpmvi renal failure Problem details: Stage III CKD. Current visit: Yes Status: Acute (5) Chronic anticoagulation Current visit: Yes Status: Chronic (6) Tick bite Current visit: Yes Status: Acute Assessment and Plan: Assessment: Fever of unknown origin, resolved- most likely due to a tickborne illness, probably tularemia, serology pending. Acute on Chronic renal failure-stage III A fib currently stable on medication-Dr. Leong is following Pacemaker Essential HTN GERD OA/back pain Acute elevated liver function tests suspect this is secondary to multisystem organ effects from infection Thrombocytopenia - likely secondary to infection Constipation Lethargy-Aricept, trazodone on hold, gabapentin dose decreased History CVA left cerebellum/occipital lobes Plan: Continue Doxycycline, tularemia serology, 1:20-consider repeating in 2-4 weeks. Urine output improving, renal function clearly improved overnight. BNP slightly higher-2 mg IV Bumex given this morning. Reassess urine output late this afternoon to determine if additional doses should be given. Discussed with cardiology. Plan daily Bumex unless urine output poor during the day today. Nocturnal oximetry obtained last night on room air-that he for just under 7 hours with 1 hr 27 min < 89%, lowest saturation 65%; pattern suggestive of sleep apnea which family member indicates has been suggested previously. Nocturnal oxygen initiated at 3 L and will attempt to obtain repeat oximetry with supplemental oxygen tonight. Discontinue Christianson. Cameron discontinued, Aricept resumed. Favorable trend and all labs-platelet count improved, bilirubin down, transaminases improving slightly, renal function clearly improved. Pulse oximetry/telemetry reviewed by myself, discussed with cardiology, supplemental history provided by family, laboratory data reviewed. - Time spent with patient greater than 35 minutes Coordination of Care: >50% of visit spent providing counseling/coordination of care Sepsis Assessment - Evaluation Sepsis screening result: No Definite Risk Hospital Course Summary Disclaimer: The visit summary below is not to be considered part of the above Progress Note. Hospital Course: 12/19/16 14:21 Assessment: Fever most likely due to a tickborne illness. Chronic kidney disease now with a rapid increase in creatinine most likely secondary to dehydration and possible interstitial nephritis due to infection A fib currently stable on medication chronic HTN the patient has been hypotensive during the evening fluid was increased, Norvasc is on hold GERD OA chronic Plan: Continue oral doxycycline We will continue IV fluids which were started last night response to his low blood pressure and increased creatinine. His increased creatinine may be secondary to the underlying infection as that may also explain his hematuria which may represent interstitial nephritis. It should be noted the patient has CT scan done in and December 16, at that time the kidneys showed normal enhancement without masses no radiodense stones or hydronephrosis. Continue OT and PT secondary to weakness, patient's family wonders if he might need physical therapy as an outpatient as well. We will DC ceftriaxone Will ask Dr. VERNON need to see the patient at the family's request Will recheck a BMP this afternoon to monitor his creatinine 12/20/16 10:52 *Acute febrile illness/Suspected Tick-Borne illness- Continue doxycycline. Serum titers pending. Pt. is afebrile overnoc. Ceftriaxone DC'd. Mild pancytopenia noted- likely due to sepsis. If tick-borne titers negative, consider WNV testing. He does not c/o headache or neck/back pain, so less likely. *AKF/CKD- Suspect due to hypotension with known CKD. baseline unclear (~1.8?) Decrease Norvasc 5mg, hold if SBP less than 130mmHg. Restart IVF at 100ml/hr. Check bladder scan to be sure there is no urinary retention. May need to allow mild passive hypertension for renal perfusion. Assess for rhabdo given increasing LFTs as well- higher risk for Rhabdo given Norvasc and Zocor tx- stop Zocor. Repeat labs this afternoon for stability with IVF restarted. *HFpEF/AFib/Chronic anticoagulation Need to resume IVF. No diuretics on board. He does not appear fluid overloaded. CXR is improved. May need to provide gentle diuretics with ongoing IVF given MICHAELLE- will monitor fluid status. Prelim echo pending. Dr. Wellington following. Zoquis in renal dosing. *DVT px- Eliquis. We can DC the SCD's. Repeat labs in AM. Continue telemetry. 12/21/16 14:27 *Acute febrile illness/Possible tick borne illness So far, serologies have been negative. Continue doxycycline for now. He is afebrile. LFTs climbing slowly, continues to demonstrate elevated CPK. Will order GB sono to R/O occult cholecystitis. *Acute Renal Failure/Elevated CPK- BP is normalizing. Continue IVF- will add low dose Lasix Q 8 hours to flush kidneys. Add some KCL to IVF to replace with diuresis. Repeat labs in AM. Christianson placed due to concern for retention. UOP remains marginal. *HTN- Doing well on lower dose of amlodipine. *Chronic pain- Gabapentin. *Hip pain/leg pain- Likely OA. Monitor. If persists, or worsens, could consider imaging. Fall is not documented. *Atrial Fib- Continue rate control/Eliquis. Granddaughter relays family's concerns about weakness and mental status. She notes that he doesn't have any focal findings-but seems to be more lethargic, has difficulty raising a glass to his lips, but no observed aphasia, difficulty with speech or weakness in his arms or legs. The family is concerned because he had similar symptoms years ago when he had a mini stroke. On physical exam: Skin:He seems to have a faint pink macular papular rash on his upper inner arms but it is not generalized Neuro- awakens easily, follows commands, minimal left facial droop, no tongue deviation or fasciculations, moves all extremities equally Assessment as above- Will check CT of head without contrast Unable to find OT/PT eval on chart, will reconsult Continue Doxycycline Check lab in am 12/22/16 15:36 Assessment: Resolved Fever-infection most likely due to a tickborne illness, most likely tularemia.. Tularemia serology is pending. The lab is sent to [place] and has a four-day turnaround time it is expected to be run on Thursday. Acute on Chronic renal failure, creatinine today is 3.1, most likely secondary to dehydration and possible interstitial nephritis due to infection A fib currently stable on medication-Dr. Leong is following Pacemaker in place Chronic HTN the patient has been hypotensive previously, Norvasc is on hold GERD OA chronic Acute elevated liver function tests suspect this is secondary to multisystem organ effects from infection Thrombocytopenia most likely secondary to infection plan : Reviewed medications with pharmacist- secondary to lethargy will decrease gabapentin to 100 mg by mouth daily we'll hold Aricept, and trazodone and reevaluate in the morning CT of head without contrast results were discussed with his granddaughter no acute changes OT and PT did see the patient today. He may benefit from rehabilitation after his acute stay. Continue Doxycycline IV fluids and status reviewed with cardiology. Given his mild acidosis will start D5W with 2 amps of sodium acetate (there is a nationwide shortage of sodium bicarbonate), d/c lasix Check lab in am including CBC with manual differential, basic metabolic profile , and liver panel. The patient may benefit from more aggressive nephrology input if his creatinine does not turn around with current therapy 12/23/16 17:11-Allie Continue Doxycycline, tularemia serology pending. IV fluids on hold, Lasix on hold; oral intake limited. Reassess renal function in a.m. and assess fractional excretion of sodium to better gauge volume status. Recheck BNP and chest x-ray in am. Senokot/MiraLAX initiated for constipation. Continue PT for strengthening. 12/24/16 19:52 Continue Doxycycline, tularemia serology ,1:20-consider repeating in 2-4 weeks. IV fluids on hold, Lasix on hold; oral intake limited. FeNa 0.43% but BNP climbing, chest x-ray with minimal change, weight up. Discussed diuretics with Dr. Wellington-will continue to hold but anticipate need to resume in the next 1-2 days. Single episode of desaturation at 88% described overnight, will check nocturnal oximetry tonight. Continue bowel regimen and physical therapy. Bladder training initiated with goal of discontinuing Christianson tomorrow. 12/25/16 18:00 Continue Doxycycline, tularemia serology, 1:20-consider repeating in 2-4 weeks. Urine output improving, renal function clearly improved overnight. BNP slightly higher-2 mg IV Bumex given this morning. Reassess urine output late this afternoon to determine if additional doses should be given. Discussed with cardiology. Plan daily Bumex unless urine output poor during the day today. Nocturnal oximetry obtained last night on room air-that he for just under 7 hours with 1 hr 27 min < 89%, lowest saturation 65%; pattern suggestive of sleep apnea which family member indicates has been suggested previously. Nocturnal oxygen initiated at 3 L and will attempt to obtain repeat oximetry with supplemental oxygen tonight. Discontinue Christianson. Cameron discontinued, Aricept resumed. Favorable trend and all labs-platelet count improved, bilirubin down, transaminases improving slightly, renal function clearly improved.
[2016-12-25] MEDS: DONEPEZIL 5 MG TABLET PO SCH (22:30)
--- NOTE | 2016-12-25 23:21 | Cardiology Progress Note ---
Subjective Principal diagnosis: Atrial Fibrillation <Ophelia Carvalho 12/25/16 23:30> Interval history: CC: AFIB Patient sitting up in chair again today. States he has had no issues with breathing and he was able to have a BM today. States he if ready to go home. Denies any CP/palpitations. <Ophelia Carvalho 12/25/16 23:30> Exam Vital signs: Temperature 98.1 F 12/26/16 07:43 Pulse Rate 71 12/26/16 07:43 Respiratory Rate 18 12/26/16 07:43 Blood Pressure 150/85 H 12/26/16 07:43 Pulse Oximetry 96 12/26/16 10:30 Oxygen Delivery Method Room Air Oxygen Flow Rate 3 <Ponce Wellington - 12/26/16 15:16> Temperature 98.8 F 12/25/16 16:00 Pulse Rate 64 12/25/16 16:00 Respiratory Rate 20 12/25/16 16:00 Blood Pressure 146/84 H 12/25/16 16:00 Pulse Oximetry 96 12/25/16 19:26 Oxygen Delivery Method Room Air Oxygen Flow Rate 76 <Ophelia Carvalho 12/25/16 23:30> - Constitutional no acute distress, obese, cooperative <Ophelia Carvalho 12/25/16 23:30> - Routine HEENT Exam Head: Present: normocephalic <Ophelia Carvalho 12/25/16 23:30> Eye: Present: EOMI <Ophelia Carvalho 12/25/16 23:30> ENT: Present: mucous membranes moist <Ophelia Carvalho 12/25/16 23:30> - Routine Respiratory Exam Present: decreased breath sounds. Absent: dyspnea, wheezes <Ophelai Carvalho 12/25/16 23:30> - Routine Cardiovascular Exam Present: irregular rhythm. Absent: JVD <Ophelia Carvalho 12/25/16 23:30> - Routine Abdominal Exam Present: soft, normoactive bowel sounds, non tender, distended <Ophelia Carvalho 12/25/16 23:30> - Routine Extremities Exam Present: edema, non tender, pulses intact <Ophelia Carvalho 12/25/16 23:30> Comments: Trace edema to BLE. <Ophelia Carvalho 12/25/16 23:30> - Routine Skin Exam Present: intact, dry, warm. Absent: erythema, wounds, rash <EctOphelia ace 12/25/16 23:30> - Routine Neurological Exam Present: alert, oriented X3 <Ophelia Carvalho 12/25/16 23:30> - Routine Psychiatric Exam Present: normal affect, cooperative <EctOphelia ace 12/25/16 23:30> - Urinary Catheter Management Urethral Cath placed during this visit: no <AnnamariaanaPonce massey 12/26/16 15:16> yes, but has since been removed by the nurse <EctOphelia ace 12/25/16 23:30> Urethral indwelling: Yes <JohnonOphelia 12/25/16 23:30> Reason for continuing: Acute Urinary Retention <EctOphelia ace 12/25/16 23:30 > Insertion date: 12/21/16 <Ecton,Ophelia 12/25/16 23:30> Insertion time: 11:25 <EctonOphelia 12/25/16 23:30> Removal date: 12/25/16 <Ecton,Ophelia 12/25/16 23:30> Removal time: 17:30 <Ecton,Ophelia 12/25/16 23:30> Progress Note-A&P (1) Atrial fibrillation Status: Chronic Current Visit: Yes (2) Pacemaker Status: Chronic Current Visit: Yes (3) HTN (hypertension) Status: Chronic Current Visit: Yes (4) Aprgy-rm-[id number] renal failure Problem details: Stage III CKD. Status: Acute Current Visit: Yes <AmishPonce 12/26/16 15:16> (1) Atrial fibrillation Status: Chronic Assessment and plan: Continue home anticoagulation with Eliques 2.5mg bid. Con't to monitor tele, rate control tolerable given pt's recent hypotension which is resolved. BNP slightly elevated again at 7910 today,network developer improved at 2.3. One time dosediuretic given. Current Visit: Yes (2) Pacemaker Status: Chronic Current Visit: Yes (3) HTN (hypertension) Status: Chronic Assessment and plan: BP remains elevated, increase Norvasc to 10mg daily. Monitor VS. Current Visit: Yes (4) Jgedi-va-ftbkapa renal failure Problem details: Stage III CKD. Status: Acute Assessment and plan: Coil Maker.remains improved greatly at 2.3 today. BNP 7910.LFT's improving. Wts slightly up. Pt remains on RA with slightly diminished lung sounds. Good UOP with kirk. Dr. Kelley discussed initiation of diuretics. One time dose IV Bumex 2mg given this AM. Notified . We will monitor UOP and patient's AM lab to determine appropriate diuretic regimen if needed. Current Visit: Yes <Ophelia Carvalho 12/25/16 23:18> - Time Spent With Patient Total time spent is greater than 50% in coordination of care (as documented) at patient's floor/unit and/or counseling patient: <Ponce Wellington 12/26/16 15:16> Total time spent is greater than 50% in coordination of care (as documented) at patient's floor/unit and/or counseling patient: <Ophelia Carvalho 12/25/16 23:30> 25 - 35 minutes <Ophelia Carvalho 12/25/16 23:30> - Attestation Attestation Narrative: Recommendation After examining the patient I agree with the above assessment. I am involved in the formulation of the patient's plan of care. <Ponce Wellington 12/26/16 15:16> Sepsis Assessment - Evaluation Sepsis screening result: No Definite Risk <JohnmalkaOphelia Sumanth 12/25/16 23:30> Hospital Course Summary Disclaimer: The visit summary below is not to be considered part of the above Progress Note. <Ponce Wellington 12/26/16 15:16> The visit summary below is not to be considered part of the above Progress Note. <Ophelia Carvalho 12/25/16 23:30> Hospital Course: 12/19/16 14:21 Assessment: Fever most likely due to a tickborne illness. Chronic kidney disease now with a rapid increase in creatinine most likely secondary to dehydration and possible interstitial nephritis due to infection A fib currently stable on medication chronic HTN the patient has been hypotensive during the evening fluid was increased, Norvasc is on hold GERD OA chronic Plan: Continue oral doxycycline We will continue IV fluids which were started last night response to his low blood pressure and increased creatinine. His increased creatinine may be secondary to the underlying infection as that may also explain his hematuria which may represent interstitial nephritis. It should be noted the patient has CT scan done in and December 16, at that time the kidneys showed normal enhancement without masses no radiodense stones or hydronephrosis. Continue OT and PT secondary to weakness, patient's family wonders if he might need physical therapy as an outpatient as well. We will DC ceftriaxone Will ask Dr. VERNON need to see the patient at the family's request Will recheck a BMP this afternoon to monitor his creatinine 12/20/16 10:52 *Acute febrile illness/Suspected Tick-Borne illness- Continue doxycycline. Serum titers pending. Pt. is afebrile overnoc. Ceftriaxone DC'd. Mild pancytopenia noted- likely due to sepsis. If tick-borne titers negative, consider WNV testing. He does not c/o headache or neck/back pain, so less likely. *AKF/CKD- Suspect due to hypotension with known CKD. baseline unclear (~1.8?) Decrease Norvasc 5mg, hold if SBP less than 130mmHg. Restart IVF at 100ml/hr. Check bladder scan to be sure there is no urinary retention. May need to allow mild passive hypertension for renal perfusion. Assess for rhabdo given increasing LFTs as well- higher risk for Rhabdo given Norvasc and Zocor tx- stop Zocor. Repeat labs this afternoon for stability with IVF restarted. *HFpEF/AFib/Chronic anticoagulation Need to resume IVF. No diuretics on board. He does not appear fluid overloaded. CXR is improved. May need to provide gentle diuretics with ongoing IVF given MICHAELLE- will monitor fluid status. Prelim echo pending. Dr. Wellington following. Ben in renal dosing. *DVT px- Eliquis. We can DC the SCD's. Repeat labs in AM. Continue telemetry. 12/21/16 14:27 *Acute febrile illness/Possible tick borne illness So far, serologies have been negative. Continue doxycycline for now. He is afebrile. LFTs climbing slowly, continues to demonstrate elevated CPK. Will order GB sono to R/O occult cholecystitis. *Acute Renal Failure/Elevated CPK- BP is normalizing. Continue IVF- will add low dose Lasix Q 8 hours to flush kidneys. Add some KCL to IVF to replace with diuresis. Repeat labs in AM. Kirk placed due to concern for retention. UOP remains marginal. *HTN- Doing well on lower dose of amlodipine. *Chronic pain- Gabapentin. *Hip pain/leg pain- Likely OA. Monitor. If persists, or worsens, could consider imaging. Fall is not documented. *Atrial Fib- Continue rate control/Eliquis. Granddaughter relays family's concerns about weakness and mental status. She notes that he doesn't have any focal findings-but seems to be more lethargic, has difficulty raising a glass to his lips, but no observed aphasia, difficulty with speech or weakness in his arms or legs. The family is concerned because he had similar symptoms years ago when he had a mini stroke. On physical exam: Skin:He seems to have a faint pink macular papular rash on his upper inner arms but it is not generalized Neuro- awakens easily, follows commands, minimal left facial droop, no tongue deviation or fasciculations, moves all extremities equally Assessment as above- Will check CT of head without contrast Unable to find OT/PT eval on chart, will reconsult Continue Doxycycline Check lab in am 12/22/16 15:36 Assessment: Resolved Fever-infection most likely due to a tickborne illness, most likely tularemia.. Tularemia serology is pending. The lab is sent to [place] and has a four-day turnaround time it is expected to be run on Thursday. Acute on Chronic renal failure, creatinine today is 3.1, most likely secondary to dehydration and possible interstitial nephritis due to infection A fib currently stable on medication-Dr. Leong is following Pacemaker in place Chronic HTN the patient has been hypotensive previously, Norvasc is on hold GERD OA chronic Acute elevated liver function tests suspect this is secondary to multisystem organ effects from infection Thrombocytopenia most likely secondary to infection plan : Reviewed medications with pharmacist- secondary to lethargy will decrease gabapentin to 100 mg by mouth daily we'll hold Aricept, and trazodone and reevaluate in the morning CT of head without contrast results were discussed with his granddaughter no acute changes OT and PT did see the patient today. He may benefit from rehabilitation after his acute stay. Continue Doxycycline IV fluids and status reviewed with cardiology. Given his mild acidosis will start D5W with 2 amps of sodium acetate (there is a nationwide shortage of sodium bicarbonate), d/c lasix Check lab in am including CBC with manual differential, basic metabolic profile , and liver panel. The patient may benefit from more aggressive nephrology input if his creatinine does not turn around with current therapy 12/23/16 17:11-Allie Continue Doxycycline, tularemia serology pending. IV fluids on hold, Lasix on hold; oral intake limited. Reassess renal function in a.m. and assess fractional excretion of sodium to better gauge volume status. Recheck BNP and chest x-ray in am. Senokot/MiraLAX initiated for constipation. Continue PT for strengthening. 12/24/16 19:52 Continue Doxycycline, tularemia serology ,1:20-consider repeating in 2-4 weeks. IV fluids on hold, Lasix on hold; oral intake limited. FeNa 0.43% but BNP climbing, chest x-ray with minimal change, weight up. Discussed diuretics with Dr. Wellington-will continue to hold but anticipate need to resume in the next 1-2 days. Single episode of desaturation at 88% described overnight, will check nocturnal oximetry tonight. Continue bowel regimen and physical therapy. Bladder training initiated with goal of discontinuing Kirk tomorrow. 12/25/16 18:00 Continue Doxycycline, tularemia serology, 1:20-consider repeating in 2-4 weeks. Urine output improving, renal function clearly improved overnight. BNP slightly higher-2 mg IV Bumex given this morning. Reassess urine output late this afternoon to determine if additional doses should be given. Discussed with cardiology. Plan daily Bumex unless urine output poor during the day today. Nocturnal oximetry obtained last night on room air-that he for just under 7 hours with 1 hr 27 min < 89%, lowest saturation 65%; pattern suggestive of sleep apnea which family member indicates has been suggested previously. Nocturnal oxygen initiated at 3 L and will attempt to obtain repeat oximetry with supplemental oxygen tonight. Discontinue Kirk. [place] discontinued, Aricept resumed. Favorable trend and all labs-platelet count improved, bilirubin down, transaminases improving slightly, renal function clearly improved. <Ophelia Carvalho R - 12/25/16 23:30>
[2016-12-26] MEDS: SENNA + DOCUSATE TABLET PO SCH (08:34)
[2016-12-26] MEDS: ALLOPURINOL 100 MG TABLET PO SCH (08:35)
[2016-12-26] MEDS: MULTI-VITAMIN PLAIN TABLET PO SCH (08:35)
[2016-12-26] MEDS: POLYETHYL GLYCOL 3350 17gm PACKET PO SCH (08:35)
[2016-12-26] MEDS: APIXABAN 5 MG TABLET PO SCH (08:35)
[2016-12-26] MEDS: GABAPENTIN 100 MG CAPSULE PO SCH (08:35)
[2016-12-26] MEDS: SALINE FLUSH 10ml SYRINGE IVF PRN (08:35)
[2016-12-26] MEDS ORDERED: AMLODIPINE 10 MG TABLET PO SCH (09:00)
--- NOTE | 2016-12-26 15:02 | Cardiology Progress Note ---
Subjective Principal diagnosis: Atrial Fibrillation <Ophelia Carvalho 12/26/16 15:06> Interval history: CC: AFIB Patient doing very well today. States he is ready to go home. Denies any CP, palpitations, SOA, diaphoresis. 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 Plan to dismiss home today per . <Ophelia Carvalho 12/26/16 15:06> Exam Vital signs: Temperature 98.1 F 12/26/16 07:43 Pulse Rate 71 12/26/16 07:43 Respiratory Rate 18 12/26/16 07:43 Blood Pressure 150/85 H 12/26/16 07:43 Pulse Oximetry 96 12/26/16 10:30 Oxygen Delivery Method Room Air Oxygen Flow Rate 3 <AnnamariaanabrysonPonce - 12/26/16 15:16> Temperature 98.1 F 12/26/16 07:43 Pulse Rate 71 12/26/16 07:43 Respiratory Rate 18 12/26/16 07:43 Blood Pressure 150/85 H 12/26/16 07:43 Pulse Oximetry 96 12/26/16 10:30 Oxygen Delivery Method Room Air Oxygen Flow Rate 3 12/26/16 04:48 12/26/16 04:48 <Ophelia Carvalho 12/26/16 15:06> - Constitutional no acute distress, obese, cooperative <JohnonOphelia 12/26/16 15:06> - Routine HEENT Exam Head: Present: normocephalic <Ophelia Carvalho 12/26/16 15:06> Eye: Present: EOMI <EctonOphelia 12/26/16 15:06> ENT: Present: mucous membranes moist <EctonOphelia 12/26/16 15:06> - Routine Neck Exam Absent: JVD, carotid bruit, lymphadenopathy <EctonOphelia 12/26/16 15:06> - Routine Respiratory Exam Present: decreased breath sounds. Absent: dyspnea, respiratory distress, wheezes <EctonOphelia 12/26/16 15:06> - Routine Cardiovascular Exam Present: irregular rhythm. Absent: no murmur, gallop, rubs, JVD <JohnonOphelia 12/26/16 15:06> - Routine Abdominal Exam Present: soft, normoactive bowel sounds, non distended <Ophelia Carvalho 15:06> - Routine Extremities Exam Present: edema, pulses intact <Ophelia Carvalho 12/26/16 15:06> Comments: Trace edema to BLE <Ophelia Carvalho 12/26/16 15:06> - Routine Skin Exam Present: intact, dry, warm. Absent: wounds, rash <Ophelia Carvalho 12/26/16 15 :06> - Routine Neurological Exam Present: alert, oriented X3, moving all extremities <Ophelia Carvalho 12/26/16 15:06> - Routine Psychiatric Exam Present: normal affect, cooperative. Absent: normal thought process <Ophelia Carvalho 12/26/16 15:06> - Urinary Catheter Management Urethral Cath placed during this visit: no <Ponce Wellington 12/26/16 15:16> yes, but has since been removed by the nurse <Ophelia Carvalho 12/26/16 15:06> Urethral indwelling: No <JohnonOphelia 12/26/16 15:06> Insertion date: 12/21/16 <EctonOphelia 12/26/16 15:06> Insertion time: 11:25 <JohnonOphelia 12/26/16 15:06> Removal date: 12/25/16 <EctonOphelia 12/26/16 15:06> Removal time: 17:30 <Ophelia Carvalho 12/26/16 15:06> Progress Note-A&P (1) Atrial fibrillation Status: Chronic Current Visit: Yes (2) Pacemaker Status: Chronic Current Visit: Yes (3) HTN (hypertension) Status: Chronic Current Visit: Yes (4) Knrbn-dw-wjhftic renal failure Problem details: Stage III CKD. Status: Acute Current Visit: Yes <AnnamariajayjayPonce 12/26/16 15:16> (1) Atrial fibrillation Status: Chronic Assessment and plan: Continue home anticoagulation with Eliques 2.5mg bid. [employer]. 2.1 today. Having good UOP post kirk. Will need f/u lab out pt. Current Visit: Yes (2) Pacemaker Status: Chronic Current Visit: Yes (3) HTN (hypertension) Status: Chronic Assessment and plan: D/c home on Norvasc 10mg daily. Current Visit: Yes (4) [id number] renal failure Problem details: Stage III CKD. Status: Acute Assessment and plan: Con'ts to improve, 2.1 today. K+4.1. LFT's also con't to trend down. Good UOP post kirk and since lasix x1 yesterday. Will need f/u lab outpt. Current Visit: Yes <Ophelia Carvalho 12/26/16 14:59> - Time Spent With Patient Total time spent is greater than 50% in coordination of care (as documented) at patient's floor/unit and/or counseling patient: <Ponce Wellington 12/26/16 15:16> Total time spent is greater than 50% in coordination of care (as documented) at patient's floor/unit and/or counseling patient: <Ophelia Carvalho 12/26/16 15:06> less than 15 minutes <Ophelia Carvalho 12/26/16 15:06> - Attestation Attestation Narrative: Recommendation After examining the patient I agree with the above assessment. I am involved in the formulation of the patient's plan of care. <Ponce Wellington 12/26/16 15:16> Sepsis Assessment - Evaluation Sepsis screening result: No Definite Risk <Ophelia Carvalho 12/26/16 15:06> Hospital Course Summary Disclaimer: The visit summary below is not to be considered part of the above Progress Note. <Ponce Wellington 12/26/16 15:16> The visit summary below is not to be considered part of the above Progress Note. <Ophelia Carvalho 12/26/16 15:06> Hospital Course: 12/19/16 14:21 Assessment: Fever most likely due to a tickborne illness. Chronic kidney disease now with a rapid increase in creatinine most likely secondary to dehydration and possible interstitial nephritis due to infection A fib currently stable on medication chronic HTN the patient has been hypotensive during the evening fluid was increased, Norvasc is on hold GERD OA chronic Plan: Continue oral doxycycline We will continue IV fluids which were started last night response to his low blood pressure and increased creatinine. His increased creatinine may be secondary to the underlying infection as that may also explain his hematuria which may represent interstitial nephritis. It should be noted the patient has CT scan done in and December 16, at that time the kidneys showed normal enhancement without masses no radiodense stones or hydronephrosis. Continue OT and PT secondary to weakness, patient's family wonders if he might need physical therapy as an outpatient as well. We will DC ceftriaxone Will ask Dr. VERNON need to see the patient at the family's request Will recheck a BMP this afternoon to monitor his creatinine 12/20/16 10:52 *Acute febrile illness/Suspected Tick-Borne illness- Continue doxycycline. Serum titers pending. Pt. is afebrile overnoc. Ceftriaxone DC'd. Mild pancytopenia noted- likely due to sepsis. If tick-borne titers negative, consider WNV testing. He does not c/o headache or neck/back pain, so less likely. *AKF/CKD- Suspect due to hypotension with known CKD. baseline unclear (~1.8?) Decrease Norvasc 5mg, hold if SBP less than 130mmHg. Restart IVF at 100ml/hr. Check bladder scan to be sure there is no urinary retention. May need to allow mild passive hypertension for renal perfusion. Assess for rhabdo given increasing LFTs as well- higher risk for Rhabdo given Norvasc and Zocor tx- stop Zocor. Repeat labs this afternoon for stability with IVF restarted. *HFpEF/AFib/Chronic anticoagulation Need to resume IVF. No diuretics on board. He does not appear fluid overloaded. CXR is improved. May need to provide gentle diuretics with ongoing IVF given MICHAELLE- will monitor fluid status. Prelim echo pending. Dr. Wellington following. Ben in renal dosing. *DVT px- Eliquis. We can DC the SCD's. Repeat labs in AM. Continue telemetry. 12/21/16 14:27 *Acute febrile illness/Possible tick borne illness So far, serologies have been negative. Continue doxycycline for now. He is afebrile. LFTs climbing slowly, continues to demonstrate elevated CPK. Will order GB sono to R/O occult cholecystitis. *Acute Renal Failure/Elevated CPK- BP is normalizing. Continue IVF- will add low dose Lasix Q 8 hours to flush kidneys. Add some KCL to IVF to replace with diuresis. Repeat labs in AM. Kirk placed due to concern for retention. UOP remains marginal. *HTN- Doing well on lower dose of amlodipine. *Chronic pain- Gabapentin. *Hip pain/leg pain- Likely OA. Monitor. If persists, or worsens, could consider imaging. Fall is not documented. *Atrial Fib- Continue rate control/Eliquis. Granddaughter relays family's concerns about weakness and mental status. She notes that he doesn't have any focal findings-but seems to be more lethargic, has difficulty raising a glass to his lips, but no observed aphasia, difficulty with speech or weakness in his arms or legs. The family is concerned because he had similar symptoms years ago when he had a mini stroke. On physical exam: Skin:He seems to have a faint pink macular papular rash on his upper inner arms but it is not generalized Neuro- awakens easily, follows commands, minimal left facial droop, no tongue deviation or fasciculations, moves all extremities equally Assessment as above- Will check CT of head without contrast Unable to find OT/PT eval on chart, will reconsult Continue Doxycycline Check lab in am 12/22/16 15:36 Assessment: Resolved Fever-infection most likely due to a tickborne illness, most likely tularemia.. Tularemia serology is pending. The lab is sent to [place] and has a four-day turnaround time it is expected to be run on Thursday. Acute on Chronic renal failure, creatinine today is 3.1, most likely secondary to dehydration and possible interstitial nephritis due to infection A fib currently stable on medication-Dr. Leong is following Pacemaker in place Chronic HTN the patient has been hypotensive previously, Norvas is on hold GERD OA chronic Acute elevated liver function tests suspect this is secondary to multisystem organ effects from infection Thrombocytopenia most likely secondary to infection plan : Reviewed medications with pharmacist- secondary to lethargy will decrease gabapentin to 100 mg by mouth daily we'll hold Aricept, and trazodone and reevaluate in the morning CT of head without contrast results were discussed with his granddaughter no acute changes OT and PT did see the patient today. He may benefit from rehabilitation after his acute stay. Continue Doxycycline IV fluids and status reviewed with cardiology. Given his mild acidosis will start D5W with 2 amps of sodium acetate (there is a nationwide shortage of sodium bicarbonate), d/c lasix Check lab in am including CBC with manual differential, basic metabolic profile , and liver panel. The patient may benefit from more aggressive nephrology input if his creatinine does not turn around with current therapy 12/23/16 17:11-Allie Continue Doxycycline, tularemia serology pending. IV fluids on hold, Lasix on hold; oral intake limited. Reassess renal function in a.m. and assess fractional excretion of sodium to better gauge volume status. Recheck BNP and chest x-ray in am. Senokot/MiraLAX initiated for constipation. Continue PT for strengthening. 12/24/16 19:52 Continue Doxycycline, tularemia serology ,1:20-consider repeating in 2-4 weeks. IV fluids on hold, Lasix on hold; oral intake limited. FeNa 0.43% but BNP climbing, chest x-ray with minimal change, weight up. Discussed diuretics with Dr. Wellington-will continue to hold but anticipate need to resume in the next 1-2 days. Single episode of desaturation at 88% described overnight, will check nocturnal oximetry tonight. Continue bowel regimen and physical therapy. Bladder training initiated with goal of discontinuing Kirk tomorrow. 12/25/16 18:00 Continue Doxycycline, tularemia serology, 1:20-consider repeating in 2-4 weeks. Urine output improving, renal function clearly improved overnight. BNP slightly higher-2 mg IV Bumex given this morning. Reassess urine output late this afternoon to determine if additional doses should be given. Discussed with cardiology. Plan daily Bumex unless urine output poor during the day today. Nocturnal oximetry obtained last night on room air-that he for just under 7 hours with 1 hr 27 min < 89%, lowest saturation 65%; pattern suggestive of sleep apnea which family member indicates has been suggested previously. Nocturnal oxygen initiated at 3 L and will attempt to obtain repeat oximetry with supplemental oxygen tonight. Discontinue Kirk. [place] discontinued, Aricept resumed. Favorable trend and all labs-platelet count improved, bilirubin down, transaminases improving slightly, renal function clearly improved. <Ophelia Carvalho R - 12/26/16 15:06>
[2016-12-26 15:43] VITALS: BP 138/67; PULSE 72; RESP 16; TEMP 97.7; O2SAT 95
--- NOTE | 2016-12-26 16:13 | Discharge Instructions ---
Discharge Plan - Med Rec/Dispo Referrals/Follow Up: Ponce Wellington MD [Physician] - Mazin Holder II, MD [Family Provider] - 1 Week (Will need to have lab work done including CBC and CMP) [facility] Instructions: Tularemia (GEN) Prescriptions: New Acetaminophen [Tylenol] 325 - 650 mg PO Q5HR PRN tablet PRN Reason: Discomfort Bumetanide Tab [Bumex] 1 mg PO DAILY #30 tablet Doxycycline [Vibramycin] 100 mg PO BIDWM #10 tablet PEG 3350 17gm PACKET [Miralax] 17 gm PO DAILY packet Nystatin Powder [Mycostatin] 1 applic TP TID bottle Continue Docusate Sodium [Stool Softener] 100 mg PO BID #0 cap Multivitamin [One Daily Multivitamin] 1 each PO DAILY Donepezil [Aricept] 5 mg PO DAILY Allopurinol [Zyloprim] 100 mg PO DAILY Gabapentin 100 mg PO DAILY #0 cap Famotidine 1 tab PO PRN #0 tab Apixaban [Eliquis] 2.5 mg PO BID 30 Days Amlodipine Besylate 10 mg PO DAILY #0 tab Triamcinolone 0.25% Cream 15G [Kenalog] 1 applic TOP PRN #30 gm Gabapentin [Neurontin] 200 mg PO HS Trazodone [Desyrel] 50 mg PO HS Discontinued Simvastatin 40 mg PO HS #0 tab Discharge Instructions/Outpatient Orders: Final Provider Discharge Instructions Location: Determined By Patient - Disposition 01 Discharged Home, Self-Care
--- NOTE | 2016-12-26 22:00 | Discharge Summary ---
Discharge Information Date of admission: 12/18/16 17:11 Anticipated date of discharge: 12/26/16 Attending Physician: Sharifa Kelley MD Primary care physician: Mazin Holder II, MD Consults: Ponce Wellington - Discharge Diagnosis (1) Tularemia Problem Details: Probable Status: Acute (2) Febrile illness, acute Status: Acute (3) [id number] renal failure Qualifiers: Acute renal failure type: unspecified Chronic kidney disease stage: stage 3 (moderate) Qualified Code(s): N17.9 - Acute kidney failure, unspecified; N18.3 - Chronic kidney disease, stage 3 (moderate) Problem Details: Stage III CKD. Status: Acute (4) Thrombocytopenia Status: Acute (5) Abnormal liver enzymes Status: Acute (6) Tick bite Qualifiers: Encounter type: subsequent encounter Qualified Code(s): W57.XXXD - Bitten or stung by nonvenomous insect and other nonvenomous arthropods, subsequent encounter Status: Acute (7) Atrial fibrillation Qualifiers: Atrial fibrillation type: chronic Qualified Code(s): I48.2 - Chronic atrial fibrillation Status: Chronic (8) HTN (hypertension) Qualifiers: Hypertension type: essential hypertension Qualified Code(s): I10 - Essential (primary) hypertension Status: Chronic (9) Chronic anticoagulation Status: Acute - Procedures Procedures: Echocardiogram on 12/19 demonstrated: 1. Left ventricular hypertrophy. 2. Normal LV systolic function with ejection fraction of 59%. 3. Biatrial dilation. 4. Mitral annulus calcification with mild mitral regurgitation. 5. Aortic sclerosis. 6. Mild tricuspid regurgitation with mild pulmonary hypertension with estimated pulmonary artery systolic pressure of 41. 7. Mild pulmonary insufficiency. Nocturnal oximetry on the night of 12/24-12/25 on room air demonstrated significant hypoxia with 1 hour and 27 minutes < 89% out of just under 7 hours recorded time. Lowest oxygen saturation reached was 62% although majority of desaturations were in the 80-88% range. Tracing suggests obstructive sleep apnea. Repeat oximetry on 12/25-12/26 with 3 L supplemental oxygen per nasal cannula demonstrated residual hypoxia but only 21 minutes total, continues to have occasional significantly low desaturations with lowest O2 reported 72%. - Laboratory Labs: On 12/18 the patient's white count was 4.7, hemoglobin 12.8, and platelet count 87,000. Differential 87 neutrophils, 23% bands, 2% lymphocytes, 2% monocytes. Admission creatinine 1.8, AST 101, ALT 70, bilirubin 1.3 and normal alkaline phosphatase. Lactic acid and procalcitonin were unremarkable. Platelet count dropped to 62,000 on 12/19 and 12/20 before beginning to rebound. White count dropped to 3.9 and 12/20 before normalizing Peak creatinine was 3.2 on 12/23 and 12/24 before abruptly improving to 2.3 on . Peak BUN was 47 on 12/23. Bilirubin climbed to 3.3 (largely conjugated) on 12/22 dropping to 1.4 on the date of discharge. Peak AST 256 on 12/23, 138 12/26; ALT 149 12/23, 131 on 12/26; alkaline phosphatase peaked on 12/25 at 269 and was slightly down at 263 on 12/26. CPK elevated at 566 on 12/20, 604 on 12/21, and 499 on 12/22. ProBNP 4131 on 12/19, 7910 on 12/25 Serologies for tickborne illnesses were negative. 12/26/16 04:48 12/26/16 04:48 - Microbiology Blood cultures 2 drawn 12/17 negative after 5 days - Radiology Radiology: Chest x-ray on admission demonstrated mild to moderate congestive heart failure ; follow-up film on 12/17 demonstrated improvement in pulmonary vasculature although some fine groundglass opacities remained at the lung bases. Final chest x-ray on 12/24 demonstrated persistent mild cardiomegaly with minimal pleural fluid and minor increased interstitial markings but no evidence of pneumonia or other pathology. Renal sonogram on 12/21/16 revealed normal size kidneys without hydronephrosis, mass, nephrolithiasis, or abnormal perinephric fluid collection. CT head without contrast on 12/21/16 demonstrated an old left cerebellar and occipital infarct with encephalomalacia. There was scattered low-attenuation in the white matter consistent with microvascular ischemic change. No acute pathology present. Gallbladder sonogram on 12/22/16 was without evidence of cholelithiasis, trace. Cholecystic fluid could not be excluded. No significant gallbladder wall thickening was present. Common duct was 7 mm-upper normal. Remainder study was unremarkable. History of Present Illness HPI: The patient is a very pleasant 81-year-old white male who was brought to the emergency department in [place] on Thursday with a fever and he was feeling weak. At the time he presented there he reported that he had had chest pain the night before which was a tight feeling radiating from both elbows up on both sides with some left-sided jaw pain. This subsequently resolved. He also was running fevers. He did report that he had a bite behind his left ear that he believes was a tick, that he removed about a week to a week and a half ago. When he was seen in the [place] emergency department he was advised to be admitted but he did not want to be admitted so he left the ED and saw Dr. Hargrove in the clinic yesterday afternoon at which time he had a second EKG. The first EKG was apparently normal according to the granddaughter as was the second. Blood work was drawn and Dr. Hargrove called yesterday afternoon saying that the lab work was okay. However, the patient was continuing to run fevers. The granddaughter reports that on Thursday his temperature went down with Tylenol from 101.6 but then was back up to 103.8 last evening. The granddaughter brought him to the [facility] for further evaluation and he was subsequently admitted. The patient reports that he has had fevers as high as 103.8 with shaking chills and night sweats. He has had a little bit of headache in the center of his head. He has had no sores in his mouth and no sore throat. He does have upper dentures and lower partials. His vision is corrected with glasses. He is hard of hearing which makes the exam somewhat difficult. The granddaughter reports he has sounded somewhat short of breath but he denies. He has an occasional cough or clearing of the throat. He has had no nausea, no vomiting, no diarrhea, no constipation. He has felt weak all over. Yesterday he was unable to sit up in his bed unassisted. No particular pain. No numbness. No tingling of his arms or legs. No obvious skin rash. The granddaughter does report they live outside of town in [place] and her grandfather spends a lot of time with the dog outside by a shade tree. There have been lots of ticks primarily on the dog. She does not recall a tick on her grandfather. The patient was started on doxycycline and was admitted for further evaluation. Hospital Course This is a general summary of the patient's hospital course. For more details refer to the complete medical record. Hospital course: Assessment: Fever of unknown origin, resolved-likely due to a tickborne illness, probably tularemia Acute on Chronic renal failure-stage III Acute elevated liver function tests - suspect this is secondary to multisystem organ effects from infection Thrombocytopenia - likely secondary to infection Neutropenia Constipation, resolved CPK elevation Lethargy A fib, chronic History CVA left cerebellum/occipital lobes Essential HTN GERD OA/back pain Probable obstructive sleep apnea Course: Patient was admitted to the acute medical service with fever of unknown origin although tickborne illness was suspected. He was hemodynamically stable on admission with minor abnormalities in liver enzymes and low platelet count. Renal function appeared to be at baseline. He was initially treated with IV doxycycline-switched to oral administration the following morning. Over subsequent days the patient's course became more complicated with development of acute renal failure, persistent fevers, hypotension requiring high volume fluid replacement, leukopenia/thrombocytopenia, and climbing liver enzymes. Mild bump in CPK occurred. Ultimately all serologies for tickborne illnesses were negative but clinically it was felt that tularemia was probable the constellation of systemic symptoms with hematologic, hepatic, and renal complications that evolved. Ceftriaxone was briefly added due to clinical deterioration but subsequently DC'd after only 1 or 2 days when blood cultures were known to be negative after 3-4 days. Fever subsided after the first 3-4 days. The patient continued to require IV fluids due to worsening renal failure and borderline blood pressures. He was seen by Dr. Wellington due to hemodynamic instability and echocardiogram demonstrated stable cardiac function. He remained in atrial fibrillation throughout the hospital course. Progressively blood pressure stabilized and prior to discharge amlodipine was resumed at home dose. Diuretics were resumed 2 days prior to discharge due to increased weight and development of peripheral edema although the patient's oxygenation was good. This corresponded to the time period when renal function began improving spontaneously and the patient was diuresing well immediately prior to initiation of Bumex diuresis. He is discharged on 1 mg of Bumex daily which may need to be modified as renal function continues to improve. Discharge weight was 103.2 kg. Zocor was held with rising liver enzymes; enzymes were trending down at discharge although alkaline phosphatase was lagging relative to transaminases and bilirubin. Statin remains on hold pending further stabilization. Occasional nocturnal hypoxia was reported prompting nocturnal oximetry on 12/24. The study demonstrated significant desaturation. Family members indicated that obstructive sleep apnea has been suggested in the past but the patient has refused to consider CPAP. Repeat study was obtained with supplemental oxygen demonstrating less hypoxia although hypoxia was still present and occasionally severe. Unfortunately oxygen cannot be coordinated without an outpatient sleep study. This was discussed with the patient and family members prior to discharge. The patient complained of some pain in his back and thighs intermittently; low- dose Cooter was used for several days during which time Aricept was held. Off Aricept the patient's mental status deteriorated and he was much more confused than baseline. Subsequently Cooter was discontinued and Aricept resumed at home dose. Family was concerned about possible stroke due to generalized weakness and fluctuating confusion prompting noncontrast CT head during the admission. No acute findings were present on the study and there was no evidence of hemorrhagic event. OT and PT saw the patient to the latter half of the hospitalization and felt he would benefit from prison at discharge. Family initially felt they wanted to discharge home with family assistance but later requested discharge to prison in [place]-the facility had no beds so ultimately family elected discharge home with home health knowing they could reconsider prison if needs proved excessive. On the date of discharge the patient was more alert and interactive than earlier in the week. He denied dyspnea, nausea, and reported having no difficulty voiding following removal of Christianson catheter the prior day. He was alert and followed a conversation. Respirations were nonlabored and breath sounds clear. Cardiac rhythm was irregular and abdomen benign. All lab abnormalities are showing improvement with platelet count rising, creatinine and liver enzymes dropping. CPK head demonstrated improvement several days earlier. Neutropenia present early in the hospital course subsided early as did fever. Urine output and blood pressure had stabilized. Patient is felt clinically stable for discharge at this time but will require close follow- up of volume status and the multiple lab abnormalities present. Tularemia is suspected as the cause of his febrile illness with systemic complications. Serologies can be reassessed in about 2 weeks although family is advised that because treatment was initiated relatively early he may never mounted an antibody response. The patient was discharged with doxycycline for 5 additional days to complete 2 weeks of therapy. Bumex was added at 1 mg daily with instructions that he monitor his weight daily and notify physicians if his weight is going up or if he becomes dizzy. Simvastatin remains on hold at discharge, MiraLAX was added to his regimen due to constipation. Medications were reviewed with family members in detail. The patient is asked to follow-up with Dr. Holder in 1 week for reassessment of multiple lab abnormalities. He's to follow-up with Dr. Wellington in 2 weeks. Time spent with patient: discharge greater than 30 minutes Discharge Plan - Med Rec/Dispo Referrals/Follow Up: Ponce Wellington MD [Physician] - Gallo,Mazin Melendez II, MD [Family Provider] - 1 Week (Will need to have lab work done including CBC and CMP) Jordonuvboo Instructions: Tularemia (GEN) Prescriptions: New Acetaminophen [Tylenol] 325 - 650 mg PO Q5HR PRN tablet PRN Reason: Discomfort Bumetanide Tab [Bumex] 1 mg PO DAILY #30 tablet Doxycycline [Vibramycin] 100 mg PO BIDWM #10 tablet PEG 3350 17gm PACKET [Miralax] 17 gm PO DAILY packet Nystatin Powder [Mycostatin] 1 applic TP TID bottle Continue Docusate Sodium [Stool Softener] 100 mg PO BID #0 cap Multivitamin [One Daily Multivitamin] 1 each PO DAILY Donepezil [Aricept] 5 mg PO DAILY Allopurinol [Zyloprim] 100 mg PO DAILY Gabapentin 100 mg PO DAILY #0 cap Famotidine 1 tab PO PRN #0 tab Apixaban [Eliquis] 2.5 mg PO BID 30 Days Amlodipine Besylate 10 mg PO DAILY #0 tab Triamcinolone 0.25% Cream 15G [Kenalog] 1 applic TOP PRN #30 gm Gabapentin [Neurontin] 200 mg PO HS Trazodone [Desyrel] 50 mg PO HS Discontinued Simvastatin 40 mg PO HS #0 tab Discharge Instructions/Outpatient Orders: Final Provider Discharge Instructions Location: Determined By Patient - Disposition 01 Discharged Home, Self-Care
== END 2016-12-26 17:15 | disposition home or self-care (01) | DRG 872 ==
LOC: MED 19:43 → ED 19:43 → MED 23:55
PROVIDERS: ADMIT Hospitalist; ATTEND Internal Medicine